=== PATIENT | female | born 1940 | race Caucasian/White ===

== ENCOUNTER → 2016-10-14 | Outpatient (CLI) | payer MEDICARE, OTHER | END | disposition home or self-care (01) | LOC: YCHH 11:35 | PROVIDERS: ATTEND Family Medicine | DX: E11.9 Type 2 diabetes mellitus without complications (principal); I48.91 Unspecified atrial fibrillation ==

== ENCOUNTER → 2016-10-28 | Outpatient (CLI) | payer MEDICARE, OTHER | LOC: YCHH 09:19 | PROVIDERS: ATTEND Family Medicine | DX: I48.91 Unspecified atrial fibrillation (principal) ==

== ENCOUNTER → 2016-11-25 | Outpatient (CLI) | payer MEDICARE, OTHER | END | disposition home or self-care (01) | LOC: YCHH 10:53 | PROVIDERS: ATTEND Family Medicine | DX: I48.0 Paroxysmal atrial fibrillation (principal) ==

== ENCOUNTER → 2016-12-24 | Outpatient (CLI) | payer MEDICARE, OTHER | END | disposition home or self-care (01) | LOC: YCHH 09:22 | PROVIDERS: ATTEND Family Medicine | DX: I48.91 Unspecified atrial fibrillation (principal) ==

== ENCOUNTER → 2017-01-24 | Outpatient (CLI) | payer MEDICARE, OTHER | END | disposition home or self-care (01) | LOC: YCHH 09:08 | PROVIDERS: ATTEND Family Medicine | DX: I50.9 Heart failure, unspecified (principal); E11.9 Type 2 diabetes mellitus without complications; D64.9 Anemia, unspecified; I48.91 Unspecified atrial fibrillation; I25.10 Atherosclerotic heart disease of native coronary artery without angina pectoris ==

== ENCOUNTER 2017-02-10 19:57 | Emergency (ER) | payer MEDICARE, OTHER ==
[2017-02-10] MEDS ORDERED: POVIDONE IODINE 10 % 15 ML UD TOP ONE (20:52)
[2017-02-10 21:17] VITALS: O2SAT 96
--- NOTE | 2017-02-10 21:23 | ED.PDOC ---
History of Present Illness - General Chief Complaint: Skin/Abrasion/Tear Stated Complaint: smashed finger with garage door Time Seen by Provider: 02/10/17 21:23 Source: patient Exam Limitations: no limitations - History of Present Illness Initial Comments: Luis Thomson 76 y/o female stated she accidentally smashed her left ring finger in the garage door tonight,had skin tear and slight swelling right ring finger Occurred: just prior to arrival Pain - Upper Extremity: moderate: Hand, right - ring finger Method of Injury: other - accidentally smashed Improving Factors: rest Worsening Factors: movement Allergies/Adverse Reactions: Allergies Iodine Allergy (Verified 02/10/17 21:06) Penicillin G Allergy (Verified 02/10/17 21:06) Shellfish Allergy Allergy (Verified 02/10/17 21:06) cabbage family Allergy (Uncoded 08/17/16 22:09) Home Medications: Ambulatory Orders Tramadol HCl 50 mg PO Q4-6H PRN 07/11/14 Furosemide Tab [Lasix Tab] 1 tab PO DAILY #30 07/17/14 Acetaminophen [Tylenol] 650 mg PO Q4H PRN 08/16/16 Aspirin [Aspirin Childrens] 81 mg PO DAILY 08/16/16 Azithromycin [Zithromax Z-Fidencio] 1 ea PO DAILY 08/16/16 Carvedilol [Coreg] 6.25 mg PO BID 08/16/16 Cetirizine HCl [Zyrtec] 10 mg PO DAILY 08/16/16 Digoxin 0.25 mg PO DAILY 08/16/16 Ferrous Sulfate 325 mg PO DAILY 08/16/16 Insulin Detemir [Levemir Flexpen] 10 units SUBCU DAILY 08/16/16 Insulin Lispro (Human) [Humalog Kwikpen] 100 unit SC DAILY PRN 08/16/16 Nepafenac [Ilevro] 0.3 % OP DAILY 08/16/16 Polyethylene Glycol 3350 [Miralax] 17 gm PO DAILY 08/16/16 Potassium Chloride [Potassium Chloride ER] 10 meq PO BIDFD 08/16/16 Simvastatin 20 mg PO BEDTIME 08/16/16 Trazodone HCl 50 mg PO BEDTIME 08/16/16 Warfarin Sodium [Coumadin] 2.5 mg PO SUMOWEFRSA 08/16/16 Warfarin Sodium [Coumadin] 5 mg PO TUTH 08/16/16 levoFLOXacin [Levaquin] 500 mg PO QDAC #8 tab 08/18/16 Review of Systems - Review of Systems Constitutional: States: no symptoms reported EENTM: States: no symptoms reported Respiratory: States: no symptoms reported Cardiology: States: no symptoms reported Gastrointestinal/Abdominal: States: no symptoms reported Genitourinary: States: no symptoms reported Musculoskeletal: States: see HPI Skin: States: see HPI Neurological: States: no symptoms reported Endocrine: States: no symptoms reported Past Medical History (General) - Patient Medical History Hx Seizures: Yes - post head injury as teenager Hx Stroke: No Hx Asthma: Yes Hx of COPD: No Hx Cardiac Disorders: Yes - A-Fib, CHF Hx Congestive Heart Failure: Yes Hx Pacemaker: No Hx Hypertension: Yes Hx Diabetes: Yes Hx MRSA: No Surgical History: other - hysterectomy - Vaccination History Hx Tetanus, Diphtheria Vaccination: Yes - 4 yrs ago Hx Influenza Vaccination: Yes Hx Pneumococcal Vaccination: Yes - Social History Hx Tobacco Use: No Hx Alcohol Use: No Hx Substance Use: No Hx Physical Abuse: No Hx Emotional Abuse: No - Activities of Daily Living Patient Lives Alone: No - family Family Medical History - Family History Mother Family History: Unknown Living Status: Hx Family Diabetes: Yes Physical Exam - Physical Exam General Appearance: Alert, No apparent distress Eyes, Ears, Nose, Throat Exam: PERRL/EOMI, normal ENT inspection Neck: non-tender, full range of motion, supple, normal inspection Cardiovascular/Respiratory: regular rate, rhythm, normal peripheral pulses, normal breath sounds Abdominal Exam: non-tender, no organomegaly Shoulder Exam: normal inspection, non-tender Elbow/Forearm Exam: normal inspection, no evidence of injury Wrist Exam: normal inspection, no evidence of injury Hand Exam: bone tenderness, deformity - skin tear volar aspect 4th digit right, limited ROM - pain ring finger Neuro/Tendon: normal sensation, normal motor functions, normal tendon functions , responds to pain Mental Status: alert, oriented x 3 Skin Exam: normal color, warm/dry Progress - EKG/XRAY/CT XRAY: ring finger right-no fracture Departure - Departure Clinical Impression: Skin tear of right hand without complication Qualifiers: Encounter type: initial encounter Qualified Code(s): S61.401A - Unspecified open wound of right hand, initial encounter Time of Disposition: 22:53 Disposition: Discharge to Home or Self Care Condition: Fair Departure Forms: ED Discharge - Pt. Copy, Patient Portal Self Enrollment Referrals: Binh Maradiaga MD [Primary Care Provider] - 1-2 Weeks Home Medications: Ambulatory Orders Tramadol HCl 50 mg PO Q4-6H PRN 07/11/14 Furosemide Tab [Lasix Tab] 1 tab PO DAILY #30 07/17/14 Acetaminophen [Tylenol] 650 mg PO Q4H PRN 08/16/16 Aspirin [Aspirin Childrens] 81 mg PO DAILY 08/16/16 Azithromycin [Zithromax Z-Fidencio] 1 ea PO DAILY 08/16/16 Carvedilol [Coreg] 6.25 mg PO BID 08/16/16 Cetirizine HCl [Zyrtec] 10 mg PO DAILY 08/16/16 Digoxin 0.25 mg PO DAILY 08/16/16 Ferrous Sulfate 325 mg PO DAILY 08/16/16 Insulin Detemir [Levemir Flexpen] 10 units SUBCU DAILY 08/16/16 Insulin Lispro (Human) [Humalog Kwikpen] 100 unit SC DAILY PRN 08/16/16 Nepafenac [Ilevro] 0.3 % OP DAILY 08/16/16 Polyethylene Glycol 3350 [Miralax] 17 gm PO DAILY 08/16/16 Potassium Chloride [Potassium Chloride ER] 10 meq PO BIDFD 08/16/16 Simvastatin 20 mg PO BEDTIME 08/16/16 Trazodone HCl 50 mg PO BEDTIME 08/16/16 Warfarin Sodium [Coumadin] 2.5 mg PO SUMOWEFRSA 08/16/16 Warfarin Sodium [Coumadin] 5 mg PO TUTH 08/16/16 levoFLOXacin [Levaquin] 500 mg PO QDAC #8 tab 08/18/16 Additional Instructions: Recheck with home health nurse for wound care
[2017-02-10] MEDS ORDERED: NEOMYCIN-BACITRACIN-POLYMYXIN 0.9 GM UD TOP ONE (22:01)
--- NOTE | 2017-02-10 22:16 | RAD ---
EXAM DESCRIPTION: Fingers,Right CLINICAL HISTORY: 76 years Female injury COMPARISON: None. TECHNIQUE: Right finger three view FINDINGS: No acute fractures or dislocations are identified. No osseous destructive lesions. There is narrowing of the interphalangeal joint spaces. This is most notable in the distal interphalangeal joint of the third digit. There is mild ulnar subluxation at the third DIP joint. IMPRESSION: No acute fracture is identified. 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
[2017-02-10] MEDS ORDERED: HYDROCOD/APAP 5/325 (ER DISP) #3 TAB PO ONE (22:53)
[2017-02-10 23:17] VITALS: BP 164/63; TEMP 98.1
== END 2017-02-10 23:10 | disposition home or self-care (01) ==
LOC: ER 19:57
DX: S61.215A Laceration without foreign body of left ring finger without damage to nail, initial encounter (principal); I48.91 Unspecified atrial fibrillation; I11.0 Hypertensive heart disease with heart failure; I50.9 Heart failure, unspecified; Z88.8 Allergy status to other drugs, medicaments and biological substances; Z88.0 Allergy status to penicillin; Z91.018 Allergy to other foods; Z91.013 Allergy to seafood; Z79.82 Long term (current) use of aspirin; Z79.4 Long term (current) use of insulin; Z79.01 Long term (current) use of anticoagulants; W23.0XXA Caught, crushed, jammed, or pinched between moving objects, initial encounter; Y92.008 Other place in unspecified non-institutional (private) residence as the place of occurrence of the external cause

== ENCOUNTER → 2017-04-11 | Outpatient (CLI) | payer MEDICARE, OTHER | END | disposition home or self-care (01) | LOC: YCHH 10:19 | PROVIDERS: ATTEND Family Medicine | DX: I25.10 Atherosclerotic heart disease of native coronary artery without angina pectoris (principal); E11.9 Type 2 diabetes mellitus without complications; D64.9 Anemia, unspecified; I48.91 Unspecified atrial fibrillation; Z79.01 Long term (current) use of anticoagulants ==

== ENCOUNTER → 2017-07-04 | Outpatient (CLI) | payer MEDICARE, OTHER | END | disposition home or self-care (01) | LOC: YCHH 10:26 | PROVIDERS: ATTEND Family Medicine | DX: I48.91 Unspecified atrial fibrillation (principal); E11.9 Type 2 diabetes mellitus without complications; D64.9 Anemia, unspecified; E78.5 Hyperlipidemia, unspecified ==

== ENCOUNTER → 2017-10-10 | Outpatient (CLI) | payer MEDICARE, OTHER | LOC: YCHH 10:01 | PROVIDERS: ATTEND Family Medicine | DX: E11.9 Type 2 diabetes mellitus without complications (principal); D64.9 Anemia, unspecified; I25.10 Atherosclerotic heart disease of native coronary artery without angina pectoris; Z51.81 Encounter for therapeutic drug level monitoring ==

== ENCOUNTER → 2018-01-02 | Outpatient (CLI) | payer MEDICARE, OTHER | LOC: YCHH 09:18 | PROVIDERS: ATTEND Family Medicine | DX: E11.9 Type 2 diabetes mellitus without complications (principal); I50.9 Heart failure, unspecified; D64.9 Anemia, unspecified; I25.10 Atherosclerotic heart disease of native coronary artery without angina pectoris ==

== ENCOUNTER → 2018-04-24 | Outpatient (CLI) | payer MEDICARE, OTHER | LOC: YCHH 09:31 | PROVIDERS: ATTEND Family Medicine | DX: N39.0 Urinary tract infection, site not specified (principal); E11.9 Type 2 diabetes mellitus without complications; I25.10 Atherosclerotic heart disease of native coronary artery without angina pectoris; D64.9 Anemia, unspecified; E78.2 Mixed hyperlipidemia; I10 Essential (primary) hypertension ==

== ENCOUNTER → 2018-04-26 | Outpatient (CLI) | payer MEDICARE, OTHER | LOC: GMAE 16:47 | PROVIDERS: ATTEND Family Medicine | DX: G47.62 Sleep related leg cramps (principal); R25.2 Cramp and spasm; R26.9 Unspecified abnormalities of gait and mobility; N18.3 Chronic kidney disease, stage 3 (moderate) ==

== ENCOUNTER 2018-05-20 18:08 | Emergency (ER) | payer MEDICARE, OTHER ==
[2018-05-20 18:23] VITALS: O2SAT 95
--- NOTE | 2018-05-20 19:42 | ED.PDOC ---
History of Present Illness - General Chief Complaint: GI Problem Stated Complaint: diarrhea Time Seen by Provider: 05/20/18 18:18 Information Source: patient, family Exam Limitations: other - chronic memory impairment - History of Present Illness Initial Comments: Her son brought her here as she has been having diarrhea for 2-3 weeks that is responding poorly to Imodium. She was c/o rectal area pain earlier today & wanted to go to the doctor. She has seen her PCP for the same recently. Details about the diarrhea cannot be obtained as regards count, volume, color & bleeding as no one has actually seen her output. Home aides have seen soiled underwear in the house. On arrival here she verbalized no complaints & her son answered most of the questions. Abdominal Pain Onset Location: other - rectal Pain Radiation: no radiation Quality: mild Timing/Duration: other - unknown Worsening Factors: other - unknown Associated Symptoms: denies symptoms Review of Systems - Review of Systems Constitutional: States: no symptoms reported EENTM: States: no symptoms reported Respiratory: States: no symptoms reported Cardiology: States: no symptoms reported Gastrointestinal/Abdominal: States: see HPI Genitourinary: States: no symptoms reported Musculoskeletal: States: no symptoms reported Neurological: States: see HPI, weakness Endocrine: States: no symptoms reported Past Medical History (General) - Patient Medical History Hx Seizures: Yes - post head injury as teenager Hx Stroke: No Hx Dementia: Yes Hx Asthma: Yes Hx of COPD: No Hx Cardiac Disorders: Yes - A-Fib, CHF Hx Congestive Heart Failure: Yes Hx Pacemaker: No Hx Hypertension: Yes Hx Diabetes: Yes Hx MRSA: No - Vaccination History Hx Tetanus, Diphtheria Vaccination: Yes - 4 yrs ago Hx Influenza Vaccination: No Hx Pneumococcal Vaccination: Yes - Social History Hx Tobacco Use: No Hx Alcohol Use: No Hx Substance Use: No Hx Physical Abuse: No Hx Emotional Abuse: No Family Medical History - Family History Mother Family History: Unknown Living Status: Hx Family Diabetes: Yes Physical Exam - Physical Exam General Appearance: Alert, Comfortable, Frail, No apparent distress Eyes, Ears, Nose, Throat Exam: other - anicteric; pink conjunctiva Neck: supple, normal inspection Respiratory: no respiratory distress Cardiovascular/Chest: regular rate, rhythm Peripheral Pulses: 1+ Gastrointestinal/Abdominal: soft, no organomegaly, other - mild diffuse discomfort to palpation Extremity: normal inspection Neurologic: alert, normal mood/affect, disoriented x 3 Skin Exam: normal color, warm/dry Special Observations: No evidence of discomfort Progress - Progress Progress: 05/20/18 19:42 Feels OK. Lab unremarkable. No diarrhea yet. 05/20/18 20:55 + BM. Impacted per the nurse. Proobably has been having overflow incontinence rather than diarrhea. - Results/Orders Results/Orders: WBC 13 BUN 19 Na 133 Departure - Departure Clinical Impression: Constipation Qualifiers: Constipation type: unspecified constipation type Qualified Code(s): K59.00 - Constipation, unspecified Time of Disposition: 20:57 Disposition: Discharge to Home or Self Care Condition: Good Departure Forms: ED Discharge - Pt. Copy, Patient Portal Self Enrollment Instructions: DI for Constipation Referrals: CLAUDE GRIMES MD [Primary Care Provider] - 05/23/18 Home Medications: Ambulatory Orders Tramadol HCl 50 mg PO Q4-6H PRN 07/11/14 Furosemide Tab [Lasix Tab] 1 tab PO DAILY #30 07/17/14 Acetaminophen [Tylenol] 650 mg PO Q4H PRN 08/16/16 Aspirin [Aspirin Childrens] 81 mg PO DAILY 08/16/16 Azithromycin [Zithromax Z-Fidencio] 1 ea PO DAILY 08/16/16 Carvedilol [Coreg] 6.25 mg PO BID 08/16/16 Cetirizine HCl [Zyrtec] 10 mg PO DAILY 08/16/16 Digoxin 0.25 mg PO DAILY 08/16/16 Ferrous Sulfate 325 mg PO DAILY 08/16/16 Insulin Detemir [Levemir Flexpen] 10 units SUBCU DAILY 08/16/16 Insulin Lispro [Humalog Kwikpen] 100 unit SC DAILY PRN 08/16/16 Nepafenac [Ilevro] 0.3 % OP DAILY 08/16/16 Polyethylene Glycol 3350 [Miralax] 17 gm PO DAILY 08/16/16 Potassium Chloride [Potassium Chloride ER] 10 meq PO BIDFD 08/16/16 Simvastatin 20 mg PO BEDTIME 08/16/16 Trazodone HCl 50 mg PO BEDTIME 08/16/16 Warfarin Sodium [Coumadin] 2.5 mg PO SUMOWEFRSA 08/16/16 Warfarin Sodium [Coumadin] 5 mg PO TUTH 08/16/16 levoFLOXacin [Levaquin] 500 mg PO QDAC #8 tab 08/18/16
[2018-05-20 21:24] VITALS: BP 111/65; TEMP 97.8
== END 2018-05-20 21:20 | disposition home or self-care (01) ==
LOC: ER 18:08
DX: K59.00 Constipation, unspecified (principal); I50.9 Heart failure, unspecified; F03.90 Unspecified dementia, unspecified severity, without behavioral disturbance, psychotic disturbance, mood disturbance, and anxiety; J45.909 Unspecified asthma, uncomplicated; I48.91 Unspecified atrial fibrillation; I11.0 Hypertensive heart disease with heart failure; Z79.01 Long term (current) use of anticoagulants; Z79.82 Long term (current) use of aspirin; Z79.899 Other long term (current) drug therapy

== ENCOUNTER → 2018-07-10 | Outpatient (CLI) | payer MEDICARE, OTHER | LOC: YCHH 09:20 | PROVIDERS: ATTEND Family Medicine | DX: E11.9 Type 2 diabetes mellitus without complications (principal); I25.10 Atherosclerotic heart disease of native coronary artery without angina pectoris; E78.2 Mixed hyperlipidemia; D64.9 Anemia, unspecified; I48.2 Chronic atrial fibrillation; I49.9 Cardiac arrhythmia, unspecified ==

== ENCOUNTER → 2018-09-19 | Outpatient (CLI) | payer MEDICARE, OTHER | LOC: YCHH 09:31 | PROVIDERS: ATTEND Family Medicine | DX: E11.9 Type 2 diabetes mellitus without complications (principal); I25.10 Atherosclerotic heart disease of native coronary artery without angina pectoris; D64.9 Anemia, unspecified; N39.0 Urinary tract infection, site not specified; E03.9 Hypothyroidism, unspecified; Z79.899 Other long term (current) drug therapy ==

== ENCOUNTER → 2019-03-15 | Outpatient (CLI) | payer MEDICARE, OTHER | LOC: GMAE 16:53 | PROVIDERS: ATTEND Family Medicine | DX: G30.9 Alzheimer's disease, unspecified (principal); R41.82 Altered mental status, unspecified; I48.91 Unspecified atrial fibrillation ==

== ENCOUNTER → 2019-03-16 | Outpatient (CLI) | payer MEDICARE, OTHER ==
--- NOTE | 2019-03-16 12:42 | CT ---
EXAM DESCRIPTION: Head CLINICAL HISTORY: DEMENTIA COMPARISON: None available TECHNIQUE: Noncontrast head CT was performed with routine protocol. FINDINGS: Normal keita-white matter differentiation. Ventricles and sulci are prominent consistent with age-related cerebral volume loss. Low density areas in the cerebral white matter indicate chronic microvascular ischemic disease. No high density hemorrhage, focal edema or shift of the midline. No sulcal effacement. Normal orbital contents. Basilar cisterns appear clear. Intact calvarium with no fracture or lytic lesion. Normal aeration of tympanic cavities and mastoid air cells. No fluid levels in the paranasal sinuses. Skull base appears intact. Symmetrical internal auditory canals. IMPRESSION: No acute intracranial pathologic process. This exam was performed according to our departmental dose-optimization program, which includes automated exposure control, adjustment of the mA and/or kV according to patient size and/or use of iterative reconstruction technique. Total DLP equals 859.97 mGycm. Electronically signed by: Gomez Onofre MD 03/16/2019 12:40 PM CDT
== END ==
LOC: CT 11:37
PROVIDERS: ATTEND Family Medicine
DX: F03.90 Unspecified dementia, unspecified severity, without behavioral disturbance, psychotic disturbance, mood disturbance, and anxiety (principal); E11.9 Type 2 diabetes mellitus without complications; E44.1 Mild protein-calorie malnutrition; E13.8 Other specified diabetes mellitus with unspecified complications; R41.841 Cognitive communication deficit; R29.6 Repeated falls

== ENCOUNTER 2019-04-09 11:55 | Emergency (ER) | payer MEDICARE, OTHER ==
--- NOTE | 2019-04-09 12:15 | ED.PDOC ---
History of Present Illness - General Chief Complaint: General Stated Complaint: Pneumonia not responsive to tx Time Seen by Provider: 04/09/19 12:08 Source: RN/MD Exam Limitations: clinical condition - dementia/agitation - History of Present Illness Initial Comments: Bj Thomson 78 y/o female brought from [facility] after CXR repeat done today showing non resolving PNA.She was hospitalized here on 20 Jan 2019 for PNA.Patient agitated and has dementia.Patient poor historian.Denies cough ,afebrile ,SOB but feels cold. Timing/Duration: 24 hours Severity: moderate Improving Factors: nothing Worsening Factors: nothing Associated Symptoms: other - see hpi Allergies/Adverse Reactions: Allergies Iodine Allergy (Verified 02/10/17 21:06) Penicillin G Allergy (Verified 02/10/17 21:06) Shellfish Allergy Allergy (Verified 02/10/17 21:06) cabbage family Allergy (Uncoded 08/17/16 22:09) Home Medications: Ambulatory Orders Tramadol HCl 50 mg PO Q6H PRN 07/11/14 Furosemide Tab [Lasix Tab] 1 tab PO DAILY #30 07/17/14 Acetaminophen [Tylenol] 650 mg PO Q4H PRN 08/16/16 Aspirin [Aspirin Childrens] 81 mg PO DAILY 08/16/16 Carvedilol [Coreg] 6.25 mg PO BID 08/16/16 Cetirizine HCl [Zyrtec] 10 mg PO DAILY 08/16/16 Insulin Lispro [Humalog Kwikpen] See Protocol SC AC PRN 08/16/16 Potassium Chloride [Potassium Chloride ER] 10 meq PO DAILY 08/16/16 Simvastatin 20 mg PO BEDTIME 08/16/16 Trazodone HCl 50 mg PO BEDTIME 08/16/16 Atorvastatin Calcium [Lipitor] 10 mg PO BEDTIME 01/20/19 Diltiazem HCl [Diltiazem HCl ER] 120 mg PO DAILY 01/20/19 Docusate Sodium [Colace] 100 mg PO Q12H PRN 01/20/19 Nepafenac [Nevanac] 1 drop BOTH_EYES DAILY 01/20/19 Warfarin Sodium [Coumadin] 2 mg PO BEDTIME 01/20/19 Cefdinir 300 mg PO BID #14 capsule 01/23/19 Guaifenesin [Guaifenesin ER] 600 mg PO BID #28 tab 01/23/19 Insulin Detemir [Levemir] 5 unit SUBCU BEDTIME #1 pen 01/23/19 Review of Systems - Review of Systems Respiratory: States: other - PNA-non resolving/repeat CXR Unable to Obtain Due To: dementia All other Systems: Reviewed and Negative, No Change from Baseline Past Medical History (General) - Patient Medical History Hx Seizures: Yes - post head injury as teenager Hx Stroke: No Hx Dementia: Yes Hx Asthma: Yes Hx of COPD: No Hx Cardiac Disorders: Yes - A-Fib, CHF Hx Congestive Heart Failure: Yes Hx Pacemaker: No Hx Hypertension: Yes Hx Diabetes: Yes Hx MRSA: No Surgical History: other - hysterectomy - Vaccination History Hx Tetanus, Diphtheria Vaccination: Yes - 4 yrs ago Hx Influenza Vaccination: No Hx Pneumococcal Vaccination: Yes - Social History Hx Tobacco Use: No Hx Alcohol Use: No Hx Substance Use: No Hx Physical Abuse: No Hx Emotional Abuse: No - Activities of Daily Living Patient Lives Alone: No Jail/Assisted Living (if applicable):: [place] G[place] Ability: Standby Assistance Eating (Feeding) Ability: Standby Assistance Toileting Ability: Standby Assistance Family Medical History - Family History Mother Family History: Unknown Living Status: Hx Family Diabetes: Yes Physical Exam - Physical Exam General Appearance: Alert, Comfortable, No apparent distress Eye Exam: bilateral normal Ears, Nose, Throat: hearing grossly normal, normal ENT inspection Neck: supple, normal inspection Respiratory: no respiratory distress, decreased breath sounds, rales - mild bases Cardiovascular/Chest: normal peripheral pulses, regular rate, rhythm, no gallop, no murmur Peripheral Pulses: radial,right: 2+, radial,left: 2+ Gastrointestinal/Abdominal: non tender, soft, no organomegaly Back Exam: no CVA tenderness, no vertebral tenderness Extremity: no calf tenderness, pedal edema - 3 + bilaterally Neurologic: alert, oriented x 3 Skin Exam: normal color, warm/dry Progress - Progress Progress: 04/09/19 16:44 Vital Signs - 8 hr 04/09/19 04/09/19 12:00 14:00 Temperature 96.2 F L 97 F L Pulse Rate [L 103 H 71 finger] Respiratory 20 20 Rate Blood Pressure 131/83 109/68 [L arm] O2 Sat by Pulse 97 100 Oximetry - Results/Orders Results/Orders: Vital Signs - 8 hr 04/09/19 04/09/19 12:00 14:00 Temperature 96.2 F L 97 F L Pulse Rate [L 103 H 71 finger] Respiratory 20 20 Rate Blood Pressure 131/83 109/68 [L arm] O2 Sat by Pulse 97 100 Oximetry 04/09/19 12:15 URINALYSIS Stat 04/09/19 13:15 Be Our [facility] ([place]) ONCE Laboratory Results - last 24 hr 04/09/19 04/09/19 04/09/19 13:31 13:31 13:31 WBC 4.6 L RBC 3.38 L Hgb 10.0 L Hct 30.9 L MCV 91.4 MCH 29.7 MCHC 32.4 L RDW 15.0 H Plt Count 231 MPV 8.7 Absolute Neuts (auto) 3.40 Absolute Lymphs (auto) 0.70 L Absolute Monos (auto) 0.50 Absolute Eos (auto) 0.10 Absolute Basos (auto) 0.00 Neutrophils % 73.2 Lymphocytes % 14.6 L Monocytes % 9.9 H Eosinophils % 1.4 Basophils % 0.9 PT 13.0 H INR 1.30 H PTT (SP) 27.8 Sodium 142 Potassium 4.1 Chloride 101 Carbon Dioxide 31 Anion Gap 14.1 BUN 26 H Creatinine 0.96 BUN/Creatinine Ratio 27.1 H Random Glucose 122 H Serum Osmolality 289.2 Lactic Acid 1.0 Calcium 9.0 Magnesium 2.0 Total Bilirubin 0.9 Direct Bilirubin 0.2 Indirect Bilirubin 0.7 AST 18 ALT 13 Alkaline Phosphatase 82 Creatine Kinase 28 CK-MB (CK-2) 4.3 CK-MB (CK-2) % Not Reportable Troponin I 0.02 B-Natriuretic Peptide 388.0 H* Serum Total Protein 5.9 L Albumin 3.4 TSH 04/09/19 13:31 WBC RBC Hgb Hct MCV MCH MCHC RDW Plt Count MPV Absolute Neuts (auto) Absolute Lymphs (auto) Absolute Monos (auto) Absolute Eos (auto) Absolute Basos (auto) Neutrophils % Lymphocytes % Monocytes % Eosinophils % Basophils % PT INR PTT (SP) Sodium Potassium Chloride Carbon Dioxide Anion Gap BUN Creatinine BUN/Creatinine Ratio Random Glucose Serum Osmolality Lactic Acid Calcium Magnesium Total Bilirubin Direct Bilirubin Indirect Bilirubin AST ALT Alkaline Phosphatase Creatine Kinase CK-MB (CK-2) CK-MB (CK-2) % Troponin I B-Natriuretic Peptide Serum Total Protein Albumin TSH 2.87 - EKG/XRAY/CT XRAY: chest - mildly improved PNA right lung base CT Ordered: Yes - chest-scarring ;NO PNEUMONIA;4 cm ascending thoracic aneurysm Departure - Departure Clinical Impression: Abnormal chest x-ray Thoracic aneurysm without mention of rupture Qualifiers: Presence of rupture: without rupture Qualified Code(s): I71.2 - Thoracic aortic aneurysm, without rupture Time of Disposition: 16:48 Disposition: Discharge to SNF Condition: Fair Departure Forms: ED Discharge - Pt. Copy, Patient Portal Self Enrollment Referrals: CLAUDE GRIMES MD [Primary Care Provider] - 1-2 Weeks Home Medications: Ambulatory Orders Tramadol HCl 50 mg PO Q6H PRN 07/11/14 Furosemide Tab [Lasix Tab] 1 tab PO DAILY #30 07/17/14 Acetaminophen [Tylenol] 650 mg PO Q4H PRN 08/16/16 Aspirin [Aspirin Childrens] 81 mg PO DAILY 08/16/16 Carvedilol [Coreg] 6.25 mg PO BID 08/16/16 Cetirizine HCl [Zyrtec] 10 mg PO DAILY 08/16/16 Insulin Lispro [Humalog Kwikpen] See Protocol SC AC PRN 08/16/16 Potassium Chloride [Potassium Chloride ER] 10 meq PO DAILY 08/16/16 Simvastatin 20 mg PO BEDTIME 08/16/16 Trazodone HCl 50 mg PO BEDTIME 08/16/16 Atorvastatin Calcium [Lipitor] 10 mg PO BEDTIME 01/20/19 Diltiazem HCl [Diltiazem HCl ER] 120 mg PO DAILY 01/20/19 Docusate Sodium [Colace] 100 mg PO Q12H PRN 01/20/19 Nepafenac [Nevanac] 1 drop BOTH_EYES DAILY 01/20/19 Warfarin Sodium [Coumadin] 2 mg PO BEDTIME 01/20/19 Cefdinir 300 mg PO BID #14 capsule 01/23/19 Guaifenesin [Guaifenesin ER] 600 mg PO BID #28 tab 01/23/19 Insulin Detemir [Levemir] 5 unit SUBCU BEDTIME #1 pen 01/23/19 Additional Instructions: Continue with aqll home medications;Follow up with primary Md 10 April 2019 for recheck schedule appointment;return to Emergency Room as needed
[2019-04-09] MEDS ORDERED: BUMETANIDE 0.25 MG/ML VIAL IV ONE (12:29)
--- NOTE | 2019-04-09 14:42 | RAD ---
EXAM DESCRIPTION: Chest,1 View CLINICAL HISTORY: 78 years Female, sob COMPARISON: Previous study January 21, 2019 TECHNIQUE: AP portable chest. FINDINGS: Heart size is large with normal pulmonary vascularity. Aortic arch is calcified. Infiltrative changes are seen in the right lower lobe slightly improved compared to previous study. No pulmonary mass or worrisome nodule. No pneumothorax. Blunting of the costophrenic angles bilaterally is consistent with small pleural effusions.. Bones are unremarkable. IMPRESSION: Right lower lobe infiltrate. Blunting of the costophrenic angles consistent with small pleural effusions. Electronically signed by: Gomez Onofre MD 04/09/2019 2:40 PM CDT
--- NOTE | 2019-04-09 15:35 | CT ---
EXAM DESCRIPTION: Chest w/o Contrast CLINICAL HISTORY: right lower lobe infiltrate x 3 months no resolvin COMPARISON: Chest radiograph earlier same day, older chest radiograph performed August 17, 2016. TECHNIQUE: Chest CT was performed without IV contrast. This exam was performed according to our departmental dose-optimization program, which includes automated exposure control, adjustment of the mA and/or kV according to patient size and/or use of iterative reconstruction technique. FINDINGS: No thyroid nodule. Fusiform dilation of the ascending thoracic aorta measuring up to 4 cm diameter. Mural calcification elsewhere in the thoracic aorta and coronary arteries. The main pulmonary artery is not dilated. Limited sensitivity for detection of adenopathy due to lack of IV contrast, but no mediastinal or hilar adenopathy is seen. Calcified paratracheal lymph node. Tiny bilateral pleural effusions. There are a few tiny calcified granulomata in the right lung with pleural-based calcification posteriorly in the right hemithorax. Subsegmental atelectasis or scarring posteriorly in the right lung base without additional airspace consolidation. No lung mass. No breast or chest wall lesion. No axillary adenopathy. Visualized portions of the upper abdomen are unremarkable for noncontrast technique. Degenerative changes in the thoracic spine at several levels. Old L1 compression fracture, not significantly changed from July 2016. Motion artifact limiting evaluation of the sternum, but no rib fracture or pneumothorax. IMPRESSION: Smooth pleural thickening and pleural-based calcification posteriorly in the right lung base with a small right-sided pleural effusion and overlying subsegmental atelectasis or scarring. No pneumonia or other acute intrathoracic abnormality. Tiny left-sided effusion without left-sided airspace consolidation the left pleural thickening/calcification. 4.0 cm fusiform ascending thoracic aortic aneurysm. Coronary artery disease and evidence of old healed granulomatous disease. Old L1 compression fracture. Electronically signed by: Brian Garcia MD 04/09/2019 3:33 PM CDT
[2019-04-09 15:55] VITALS: BP 109/68; TEMP 97
[2019-04-09 18:34] VITALS: O2SAT 92
== END 2019-04-09 17:18 ==
LOC: ER 11:55
DX: I71.2 Thoracic aortic aneurysm, without rupture (principal); R91.8 Other nonspecific abnormal finding of lung field; F03.90 Unspecified dementia, unspecified severity, without behavioral disturbance, psychotic disturbance, mood disturbance, and anxiety; J45.909 Unspecified asthma, uncomplicated; I50.9 Heart failure, unspecified; I48.91 Unspecified atrial fibrillation; I11.0 Hypertensive heart disease with heart failure; E11.9 Type 2 diabetes mellitus without complications; Z79.4 Long term (current) use of insulin; Z79.899 Other long term (current) drug therapy; Z79.82 Long term (current) use of aspirin; Z91.041 Radiographic dye allergy status; Z91.013 Allergy to seafood; Z88.0 Allergy status to penicillin
CPT/HCPCS: 36415; 71045; 71250; 80048; 80076; 82550; 82553; 83605; 83880; 84443; 84484; 85025; 85610; 85730; J3490

== ENCOUNTER 2019-04-28 07:33 | Emergency (ER) | payer MEDICARE, OTHER ==
[2019-04-28 14:22] VITALS: BP 111/79; TEMP 97.1; O2SAT 100
== END 2019-04-28 13:37 ==
LOC: ER 07:33
DX: E11.649 Type 2 diabetes mellitus with hypoglycemia without coma (principal); R40.0 Somnolence; F32.9 Major depressive disorder, single episode, unspecified; F03.90 Unspecified dementia, unspecified severity, without behavioral disturbance, psychotic disturbance, mood disturbance, and anxiety; J45.909 Unspecified asthma, uncomplicated; I48.91 Unspecified atrial fibrillation; I50.9 Heart failure, unspecified; I11.0 Hypertensive heart disease with heart failure; Z79.4 Long term (current) use of insulin; Z79.82 Long term (current) use of aspirin; Z79.899 Other long term (current) drug therapy; Z79.01 Long term (current) use of anticoagulants; Z91.041 Radiographic dye allergy status; Z88.0 Allergy status to penicillin; Z91.013 Allergy to seafood
CPT/HCPCS: 36415; 36416; 70450; 71045; 80048; 80076; 82550; 82553; 82948; 83605; 83880; 84484; 85025; 85610; 85730; J7799

== ENCOUNTER 2019-05-21 15:31 | Inpatient (IN) | payer MEDICARE, OTHER ==
--- NOTE | 2019-05-21 16:15 | ED.PDOC ---
History of Present Illness - General Chief Complaint: General Time Seen by Provider: 05/21/19 16:06 - History of Present Illness Initial Comments: Patient is a 78 year old w/ pmh of dementia, chf, a fib presenting from residential for evaluation of worsening edema. Patient is unable to provide any information and has no complaints. Per report the swelling has been on going for the past couple of days. HPI limited due to patient's dementia. Allergies/Adverse Reactions: Allergies Iodine Allergy (Verified 05/21/19 17:21) Penicillin G Allergy (Verified 05/21/19 17:21) Shellfish Allergy Allergy (Verified 05/21/19 17:21) cabbage family Allergy (Uncoded 05/21/19 17:21) Home Medications: Ambulatory Orders Tramadol HCl 50 mg PO Q6H PRN 07/11/14 Furosemide Tab [Lasix Tab] 1 tab PO DAILY #30 07/17/14 Acetaminophen [Tylenol] 650 mg PO Q4H PRN 08/16/16 Aspirin [Aspirin Childrens] 81 mg PO DAILY 08/16/16 Carvedilol [Coreg] 6.25 mg PO BID 08/16/16 Cetirizine HCl [Zyrtec] 10 mg PO DAILY 08/16/16 Insulin Lispro [Humalog Kwikpen] See Protocol SC AC PRN 08/16/16 Potassium Chloride [Potassium Chloride ER] 10 meq PO DAILY 08/16/16 Simvastatin 20 mg PO BEDTIME 08/16/16 Trazodone HCl 50 mg PO BEDTIME 08/16/16 Atorvastatin Calcium [Lipitor] 10 mg PO BEDTIME 01/20/19 Diltiazem HCl [Diltiazem HCl ER] 120 mg PO DAILY 01/20/19 Docusate Sodium [Colace] 100 mg PO Q12H PRN 01/20/19 Warfarin Sodium [Coumadin] 2 mg PO BEDTIME 01/20/19 Insulin Detemir [Levemir] 5 unit SUBCU BEDTIME #1 pen 01/23/19 Review of Systems - Review of Systems Unable to Obtain Due To: dementia Past Medical History (General) - Patient Medical History Hx Seizures: Yes - post head injury as teenager Hx Stroke: No Hx Dementia: Yes Hx Asthma: Yes Hx of COPD: No Hx Cardiac Disorders: Yes - A-Fib, CHF Hx Congestive Heart Failure: Yes Hx Pacemaker: No Hx Hypertension: Yes Hx Diabetes: Yes Hx Cancer: No Hx MRSA: No - Vaccination History Hx Tetanus, Diphtheria Vaccination: Yes - 4 yrs ago Hx Influenza Vaccination: No Hx Pneumococcal Vaccination: Yes - Social History Hx Tobacco Use: No Hx Alcohol Use: No Hx Substance Use: No Hx Substance Use Treatment: No Hx Depression: Yes Hx Physical Abuse: No Hx Emotional Abuse: No - Female History Patient : No Family Medical History - Family History Mother Family History: Unknown Living Status: Hx Family Diabetes: Yes Physical Exam - Physical Exam General Appearance: Alert, Comfortable Ears, Nose, Throat: hearing grossly normal, normal ENT inspection Neck: non-tender, full range of motion Respiratory: chest non-tender, lungs clear Cardiovascular/Chest: normal peripheral pulses, irregularly irregular Gastrointestinal/Abdominal: non tender, soft Extremity: pedal edema, other - diffuse anasarca, 2+ LE edema Neurologic: alert, other - oriented to person only Skin Exam: normal color, warm/dry Progress - Progress Progress: 05/21/19 16:16 MDM Pt w/ h/o dementia, CHF, a fib here presenting with diffuse anasarca. Plan for cardiac w/u, likely admit for diuresis. Rd Rios MD #[id number] 05/21/19 17:30 Spoke to Kalne Morrison who accepts patient for admission. - Results/Orders Results/Orders: 05/21/19 16:11 URINALYSIS Stat 05/21/19 16:15 EKG .ONCE Laboratory Results - last 24 hr 05/21/19 05/21/19 05/21/19 16:21 16:21 16:21 WBC RBC Hgb Hct MCV MCH MCHC RDW Plt Count MPV Absolute Neuts (auto) Absolute Lymphs (auto) Absolute Monos (auto) Absolute Eos (auto) Absolute Basos (auto) Neutrophils % Lymphocytes % Monocytes % Eosinophils % Basophils % PT 14.0 H INR 1.40 H Sodium 138 Potassium 5.4 H Chloride 98 L Carbon Dioxide 30 Anion Gap 15.4 BUN 46 H Creatinine 1.52 H BUN/Creatinine Ratio 30.3 H Random Glucose 208 H Serum Osmolality 293.7 Calcium 9.0 Magnesium 2.3 Total Bilirubin 0.9 AST 22 ALT 15 Alkaline Phosphatase 82 B-Natriuretic Peptide 417.0 H* Serum Total Protein 6.1 L Albumin 3.4 Globulin 2.7 Albumin/Globulin Ratio 1.3 05/21/19 16:21 WBC 5.8 RBC 3.68 L Hgb 10.6 L Hct 34.0 L MCV 92.3 MCH 28.9 MCHC 31.3 L RDW 15.8 H Plt Count 209 MPV 9.3 Absolute Neuts (auto) 4.00 Absolute Lymphs (auto) 0.90 L Absolute Monos (auto) 0.70 Absolute Eos (auto) 0.10 Absolute Basos (auto) 0.10 Neutrophils % 70.3 Lymphocytes % 14.9 L Monocytes % 12.4 H Eosinophils % 1.5 Basophils % 0.9 PT INR Sodium Potassium Chloride Carbon Dioxide Anion Gap BUN Creatinine BUN/Creatinine Ratio Random Glucose Serum Osmolality Calcium Magnesium Total Bilirubin AST ALT Alkaline Phosphatase B-Natriuretic Peptide Serum Total Protein Albumin Globulin Albumin/Globulin Ratio Departure - Departure Clinical Impression: Anasarca, MARY (acute kidney injury) Acute exacerbation of CHF (congestive heart failure) Qualifiers: Heart failure type: unspecified Qualified Code(s): I50.9 - Heart failure, unspecified Disposition: Admit Patient Condition: Fair Departure Forms: ED Discharge - Pt. Copy, Patient Portal Self Enrollment Referrals: CLAUDE GRIMES MD [Primary Care Provider] - 1-2 Weeks Home Medications: Ambulatory Orders Tramadol HCl 50 mg PO Q6H PRN 07/11/14 Furosemide Tab [Lasix Tab] 1 tab PO DAILY #30 07/17/14 Acetaminophen [Tylenol] 650 mg PO Q4H PRN 08/16/16 Aspirin [Aspirin Childrens] 81 mg PO DAILY 08/16/16 Carvedilol [Coreg] 6.25 mg PO BID 08/16/16 Cetirizine HCl [Zyrtec] 10 mg PO DAILY 08/16/16 Insulin Lispro [Humalog Kwikpen] See Protocol SC AC PRN 08/16/16 Potassium Chloride [Potassium Chloride ER] 10 meq PO DAILY 08/16/16 Simvastatin 20 mg PO BEDTIME 08/16/16 Trazodone HCl 50 mg PO BEDTIME 08/16/16 Atorvastatin Calcium [Lipitor] 10 mg PO BEDTIME 01/20/19 Diltiazem HCl [Diltiazem HCl ER] 120 mg PO DAILY 01/20/19 Docusate Sodium [Colace] 100 mg PO Q12H PRN 01/20/19 Warfarin Sodium [Coumadin] 2 mg PO BEDTIME 01/20/19 Insulin Detemir [Levemir] 5 unit SUBCU BEDTIME #1 pen 01/23/19 Decision To Admit - Decistion To Admit Decision to Admit Reason: Medical Nature - anasarca Decision to Admit Date: 05/21/19 Decision to Admit Time: 17:30
--- NOTE | 2019-05-21 16:39 | RAD ---
EXAM: XR Chest, 1 View CLINICAL HISTORY: dyspnea TECHNIQUE: Frontal view of the chest. COMPARISON: 04/28/2019. FINDINGS: Limitations: None. Lungs: Persistent but improved consolidation noted in the right base. Pleural space: Increased very small bilateral pleural effusions. No pneumothorax. Heart: Unremarkable. No cardiomegaly. Mediastinum: Unremarkable. Bones/joints: Unremarkable. IMPRESSION: 1. Persistent but improved consolidation noted in the right base. 2. Increased very small bilateral pleural effusions. Electronically signed by: Heather Mckoy MD 05/21/2019 4:38 PM CDT
[2019-05-21] MEDS ORDERED: FUROSEMIDE INJ 40 MG/4 ML VIAL IV ONE (17:24)
--- NOTE | 2019-05-21 19:02 | HP ---
SUPERVISING PHYSICIAN: Zeb Cao M.D. CHIEF COMPLAINT: Swelling. HISTORY OF PRESENT ILLNESS: This is a 78 year-old female who is a long term resident with advanced dementia. She is unable to give a good clinical history. However, she was sent by the long term due to increased swelling over the last several days. In the E. R., she was evaluated and noted to have 3+ pitting edema to the lower extremities to the hips and the upper extremities. She also has central edema as well. Workup also included labs and x-rays. Chest x-ray was consistent with small bilateral pleural effusions and showed possible right base consolidation as well. Compared with the previous one it looks improved, however. She had some labs done as well and showed white count 5.8, hemoglobin 10.6, platelet count 209. INR is 1.4. She takes Warfarin for atrial fibrillation. Chemistry showed potassium 5.4, BUN 46, creatinine 1.52. Albumin 3.4. BNP 417. Given her increased swelling, elevated BNP and evidence of congestive heart failure exacerbation, she was referred for admission. At time of examination, the patient is alert and oriented. She has some mild tachypnea but does not look to be in any significant distress. She, as stated before, has advanced dementia and unable to give a good clinical history. PAST MEDICAL HISTORY: 1. Hypertension. 2. Type 2 diabetes mellitus. 3. Hyperlipidemia, 4. Coronary artery disease. 5. Chronic atrial fibrillation on Warfarin. 6. Diastolic heart failure. PAST SURGICAL HISTORY: 1. Hysterectomy. 2. Bilateral cataract surgery. HOME MEDICATIONS: Please see medication reconciliation record as they have not been verified and placed in the computer yet. ALLERGIES: IODINE, PENICILLIN G, SHELLFISH AND CABBAGE. FAMILY HISTORY: Unable to obtain from the patient at this point. SOCIAL HISTORY: No drinking and no smoking. She is a long term resident. REVIEW OF SYSTEMS: Really and truly the patient is unable to give a good history of her review of systems due to her advanced dementia. PHYSICAL EXAMINATION: VITAL SIGNS: Blood pressure 111/76, heart rate 84, respiratory rate 20, temperature 97.5, oxygen saturation 100% on 2 liters viz nasal cannula. GENERAL: Ms. Thomson is a 78 year-old female in no active distress. CHEST: Lungs are diminished in the bases. CARDIOVASCULAR: Irregular rate and rhythm. Normal S1 and S2. ABDOMEN: Soft, obese. Positive bowel sounds. EXTREMITIES: Lower extremities with 3+ pitting edema. She has pitting edema to her abdomen as well as her upper extremities. NEUROLOGIC: The patient is chronically confused. There are no focal deficits. LABORATORY: As discussed in history of present illness. ASSESSMENT: 1. Congestive heart failure exacerbation. 2. Anasarca secondary to #1. 3. Renal insufficiency, acute on chronic likely. 4. Hyperkalemia likely secondary to renal insufficiency. 5. Type 2 diabetes mellitus. 6. Advanced dementia. PLAN: The patient will be admitted for diuretic therapy. I will actually give her some albumin prior to the administration of the Furosemide due to the significant anasarca. I will restart her home medications once they are placed in the computer, but replace the Lasix with IV Lasix. Will watch her electrolytes and recheck her labs in the morning. Place her on sliding scale insulin for her diabetes and physical therapy while she is here as well. [facility][id number] [facility]
[2019-05-21] MEDS ORDERED: SODIUM CHLORIDE 0.9% (FLUSH) 10 ML SYG IV PRN (19:21)
[2019-05-21] MEDS ORDERED: ALBUMIN 25 GM in PREMIX BOTTLE 2 BOTTLE IVPB SCH (19:30)
[2019-05-21] MEDS ORDERED: GLUCAGON INJ 1 MG VIAL SUBCU PRN (19:41)
[2019-05-21] MEDS ORDERED: DEXTROSE 50% 25 GM/50 ML SYG IV PRN (19:41)
[2019-05-21] MEDS ORDERED: ALBUMIN 100 ML IVPB ONE (21:04)
[2019-05-21] MEDS: IV SET AND CAP CHANGE INJ INJ SCH (21:11)
[2019-05-21] MEDS: INSULIN LISPRO 100 UNITS/ML PEN SUBCU SCH (21:11)
[2019-05-22] MEDS ORDERED: ALBUMIN 100 ML IVPB ONE (02:23)
[2019-05-22] MEDS: ALBUMIN 25 GM in PREMIX BOTTLE 2 BOTTLE IVPB SCH ×2 (04:59→13:12)
[2019-05-22] MEDS: FUROSEMIDE INJ 40 MG/4 ML VIAL IV SCH ×2 (05:58→13:12)
[2019-05-22] MEDS: INSULIN LISPRO 100 UNITS/ML PEN SUBCU SCH ×4 (07:22→21:04)
[2019-05-22] MEDS ORDERED: POTASSIUM CHLORIDE 10 MEQ TAB PO ONE (07:39)
[2019-05-22] MEDS ORDERED: CARVEDILOL 3.125 MG TAB ONE (07:39)
[2019-05-22] MEDS: ASPIRIN (CHEWABLE) 81 MG TAB PO SCH (08:17)
[2019-05-22] MEDS: CETIRIZINE HCL 10 MG TAB PO SCH (08:17)
[2019-05-22] MEDS ORDERED: NON-FORMULARY MEDICATION 1 EA MIS (Carvedilol [Coreg] 6.25 MG) PO SCH (09:00)
[2019-05-22] MEDS ORDERED: NON-FORMULARY MEDICATION 1 EA MIS (Potassium Chloride [Potassium Chloride Er] 10 MEQ) PO SCH (09:00)
[2019-05-22] MEDS ORDERED: DILTIAZEM HCL 120 MG PO SCH (09:00)
[2019-05-22] MEDS ORDERED: METOPROLOL TARTRATE 25 MG TAB PO ONE (09:50)
--- NOTE | 2019-05-22 09:55 | PN ---
SUPERVISING PHYSICIAN: Zeb Cao MD DATE: 05/22/19 SUBJECTIVE: The patient does not have any complaints at this time. Once again, she has advanced dementia and is not really too verbal. There were no changes overnight per the nursing staff. OBJECTIVE: VITAL SIGNS: Blood pressure 116/79. Heart rate 115. Respiratory rate 18. Temperature 98.9. Oxygen saturation 100%. GENERAL: Ms. Thomson is a 78-year-old female in no active distress. NEUROLOGIC: The patient is alert. LUNGS: Diminished in the bases, but otherwise clear to auscultation bilaterally. CARDIOVASCULAR: Irregular rate and rhythm. Normal S1, S2. ABDOMEN: Soft. Positive bowel sounds. EXTREMITIES: Lower extremities with 3+ pitting edema. LABORATORY: Sodium 139, potassium 4.7, chloride 100, CO2 26, BUN 42, creatinine 1.46, glucose 125, calcium 9.2. White count 4.5, hemoglobin 10.1, platelet count 178. ASSESSMENT: 1. Congestive heart failure exacerbation. 2. Anasarca secondary to #1. 3. Acute on chronic renal insufficiency. 4. Hyperkalemia, resolved. 5. Type 2 diabetes mellitus. 6. Advanced dementia. PLAN: We will continue the albumin and Lasix and combination for the next 24 hours or so. We will reevaluate tomorrow and see how she is doing. [facility]. #[id number] [facility]
[2019-05-22] MEDS ORDERED: ALBUMIN 50 ML IVPB ONE ×2 (13:09)
[2019-05-22] MEDS ORDERED: CARVEDILOL 3.125 MG TAB PO SCH (17:00)
[2019-05-22] MEDS: WARFARIN SODIUM 2 MG TAB PO SCH (18:30)
[2019-05-22] MEDS: BUMETANIDE 0.25 MG/ML VIAL IV SCH ×2 (19:45→20:12)
[2019-05-22] MEDS: metOLazone 2.5 MG TAB PO SCH (19:45)
[2019-05-22] MEDS: traZODone HCL 50 MG TAB PO SCH (20:25)
[2019-05-22] MEDS: METOPROLOL TARTRATE 25 MG TAB PO SCH (20:25)
[2019-05-22] MEDS: ATORVASTATIN 10 MG TAB PO SCH (20:25)
[2019-05-22] MEDS ORDERED: SIMVASTATIN 20 MG TAB PO SCH (21:00)
[2019-05-22] MEDS: INSULIN DETEMIR 100 UNITS/ML PEN SUBCU SCH (21:54)
[2019-05-23] MEDS ORDERED: traMADol HCL 50 MG TAB PO PRN (01:35)
[2019-05-23] MEDS ORDERED: traMADol HCL 50 MG TAB ONE (01:35)
[2019-05-23] MEDS: INSULIN LISPRO 100 UNITS/ML PEN SUBCU SCH ×4 (07:30→21:01)
[2019-05-23] MEDS: metOLazone 2.5 MG TAB PO SCH (08:25)
[2019-05-23] MEDS: POTASSIUM CHLORIDE 10 MEQ TAB PO SCH (08:26)
[2019-05-23] MEDS: CETIRIZINE HCL 10 MG TAB PO SCH (08:26)
[2019-05-23] MEDS: ASPIRIN (CHEWABLE) 81 MG TAB PO SCH (08:26)
[2019-05-23] MEDS: METOPROLOL TARTRATE 25 MG TAB PO SCH ×2 (08:26→21:20)
[2019-05-23] MEDS: BUMETANIDE 0.25 MG/ML VIAL IV SCH ×2 (08:34→21:19)
--- NOTE | 2019-05-23 14:03 | PN ---
SUPERVISING PHYSICIAN: Zeb Cao MD DATE: 05/23/19 SUBJECTIVE: The patient once again does not really report any complaints, however, yesterday afternoon she seemed to be a little more short of breath. When I went to evaluate her, she was actually tachypneic and although diminished, did not have any rales. However, on exam, she did have a pretty significant jugular venous distention. Therefore, I stopped the albumin infusions and changed her to Bumex and added a dose of Zaroxolyn. She is still having pretty significant edema. OBJECTIVE: VITAL SIGNS: Blood pressure 108/79. Heart rate 101. Respiratory rate 18. Temperature 97.5. Oxygen saturation 97%. GENERAL: Ms. Thomson is a 78-year-old female in no severe distress. NEUROLOGIC: The patient is chronically confused, but alert. LUNGS: Diminished in the bases, but otherwise clear to auscultation bilaterally. CARDIOVASCULAR: Irregular rate and rhythm. She is in atrial fibrillation with rapid ventricular response per the bus driver/monitor, however, the rate is a little bit more controlled than it was. ABDOMEN: Soft. Positive bowel sounds. EXTREMITIES: Lower extremities as well as upper extremities still exhibiting pitting edema. LABORATORY: White count 4.5, hemoglobin 10.1, platelet count 178. Chemistry with sodium 138, potassium 4.3, chloride 98, CO2 26, BUN 47, creatinine 1.52, glucose 73, calcium 9.0. ASSESSMENT: 1. Congestive heart failure exacerbation. 2. Anasarca secondary to #1. 3. Acute on chronic renal insufficiency. 4. Hyperkalemia, resolved. 5. Type 2 diabetes mellitus. 6. Advanced dementia. PLAN: As stated above, I have stopped the albumin and changed her Lasix to Bumex and added Zaroxolyn. We will see if this does anything for her edema. She may need adjustment of her chronic Lasix therapy to be changed with maybe addition of Zaroxolyn as outpatient as well. We will recheck her labs tomorrow and evaluate her for possible discharge in the morning if she continues to do well. #[id number] [facility]
[2019-05-23] MEDS: WARFARIN SODIUM 2 MG TAB PO SCH (17:16)
[2019-05-23] MEDS: traZODone HCL 50 MG TAB PO SCH (20:58)
[2019-05-23] MEDS: ATORVASTATIN 10 MG TAB PO SCH (20:58)
[2019-05-23] MEDS: INSULIN DETEMIR 100 UNITS/ML PEN SUBCU SCH (21:00)
[2019-05-24] MEDS: INSULIN LISPRO 100 UNITS/ML PEN SUBCU SCH ×4 (07:15→21:05)
[2019-05-24] MEDS: metOLazone 2.5 MG TAB PO SCH (09:19)
[2019-05-24] MEDS: POTASSIUM CHLORIDE 10 MEQ TAB PO SCH (09:19)
[2019-05-24] MEDS: BUMETANIDE 0.25 MG/ML VIAL IV SCH ×2 (09:20→21:13)
[2019-05-24] MEDS: METOPROLOL TARTRATE 25 MG TAB PO SCH ×2 (09:21→21:13)
[2019-05-24] MEDS: CETIRIZINE HCL 10 MG TAB PO SCH (09:21)
[2019-05-24] MEDS: ASPIRIN (CHEWABLE) 81 MG TAB PO SCH (09:21)
--- NOTE | 2019-05-24 13:32 | RAD ---
EXAM DESCRIPTION: Chest,1 View CLINICAL HISTORY: 78 years Female, CHF exacerbation COMPARISON: 05/21/2019 IMPRESSION: The heart is mildly enlarged, with central pulmonary vascular congestion. Atherosclerosis in the thoracic aorta. The lungs are hyperexpanded. Mild bibasilar left greater than right airspace opacities with small to moderate left pleural effusion and small right pleural effusion. The findings remain concerning for CHF with pulmonary edema. No pneumothorax. No acute osseous abnormality. Electronically signed by: Roland Alexis MD 05/24/2019 1:31 PM CDT
[2019-05-24] MEDS: WARFARIN SODIUM 2 MG TAB PO SCH (18:52)
--- NOTE | 2019-05-24 20:09 | PN ---
DATE: 05/24/19 SUPERVISING PHYSICIAN: Zeb Cao M.D. SUBJECTIVE: The patient continues to be stable but she does show slow improvement. She has been resting well. She seems to be tolerating the aggressive diuresis. She has not had any further complaints. OBJECTIVE: VITAL SIGNS: Temperature 98.2, pulse 75, blood pressure 116/76, respirations 16, satting 99% on 1 liters nasal cannula. Heart rate shows a controlled atrial fibrillation on the bedside monitor. Weight 74.0 kg which is down from admission of 75. Current I's and O's show a negative balance of 2370. GENERAL: The patient appears to be resting comfortably in no acute distress. She does look frail. CHEST: Lung sounds are diminished towards the bases with just very faint rhonchi heard in the right upper lung field. HEART: Slightly irregular rate and rhythm with atrial fibrillation with controlled ventricular rate as noted on bedside monitor. ABDOMEN: Soft, non-tender. Positive bowel sounds. EXTREMITIES: Showing some edema approximately 2+ bilaterally with no pitting noted today. NEUROLOGIC: She is alert to herself but is chronically confused. LABORATORY: Chemistries show normal electrolytes with BUN 49, creatinine 1.51. BNP is still elevated at 445. Blood sugars are ranging from 77 to 176. RADIOLOGY: Chest x-ray showed heart mildly enlarged with central pulmonary vascular congestion with findings concerning for congestive heart failure with pulmonary edema. Echocardiogram is pending. ASSESSMENT: 1. Acute on chronic congestive heart failure with a mildly reduced ejection fraction with decompensation. 2. Anasarca secondary to #1. 3. Acute on chronic renal insufficiency still showing to not be at baseline levels probably due to aggressive management with diuretics. 4. Hyperkalemia, resolved. 5. Type 2 diabetes mellitus, stable. 6. Advanced dementia. PLAN: Will continue with Bumex and Zaroxolyn for another 24 hours for aggressive management considering that she still shows a significant amount of pulmonary edema and is having a little bit of rhonchi heard on the right side. Will follow labs closely. Plan to repeat a chest x-ray in the morning and await the final echocardiogram findings. Until we can make sure she is stable where we can transfer to outpatient management and she can return to [facility], will continue to monitor and treat as needed. #[id number] [facility]
[2019-05-24] MEDS: ATORVASTATIN 10 MG TAB PO SCH (21:04)
[2019-05-24] MEDS: traZODone HCL 50 MG TAB PO SCH (21:04)
[2019-05-24] MEDS: INSULIN DETEMIR 100 UNITS/ML PEN SUBCU SCH (21:05)
[2019-05-24] MEDS: IV SET AND CAP CHANGE INJ INJ SCH (21:07)
[2019-05-25] MEDS: INSULIN LISPRO 100 UNITS/ML PEN SUBCU SCH ×4 (07:17→20:40)
--- NOTE | 2019-05-25 07:53 | RAD ---
EXAM DESCRIPTION: Chest,1 View CLINICAL HISTORY: chf exacerbation COMPARISON: May 24, 2019 IMPRESSION: Single AP portable upright view of the chest shows enlargement of the cardiac silhouette without pulmonary vascular congestion. Moderate calcifications of the thoracic aorta stable. Lungs are hypoaerated. Bilateral left greater than right pleural effusions are stable from previous exam with patchy bilateral basilar atelectasis or infiltrates also relatively unchanged. Calcified pulmonary nodules are seen suggesting old granulomatous disease. Electronically signed by: Gustabo Gleason MD 05/25/2019 7:52 AM CDT
[2019-05-25] MEDS: metOLazone 2.5 MG TAB PO SCH (08:00)
[2019-05-25] MEDS: BUMETANIDE 0.25 MG/ML VIAL IV SCH (08:00)
[2019-05-25] MEDS: METOPROLOL TARTRATE 25 MG TAB PO SCH ×2 (08:01→20:43)
[2019-05-25] MEDS: ASPIRIN (CHEWABLE) 81 MG TAB PO SCH (08:01)
[2019-05-25] MEDS: CETIRIZINE HCL 10 MG TAB PO SCH (08:01)
[2019-05-25] MEDS: POTASSIUM CHLORIDE 10 MEQ TAB PO SCH (08:01)
[2019-05-25] MEDS: WARFARIN SODIUM 2 MG TAB PO SCH (17:16)
--- NOTE | 2019-05-25 17:58 | PN ---
DATE: 05/25/19 SUPERVISING PHYSICIAN: Zeb Cao M.D. SUBJECTIVE: The patient is actually doing very well. She is responding well to diuresis. She has almost had 8 liters taken off and has been transitioned over to oral diuretics. She did pull her IV out but at this point she is not on any IV therapy. Will go ahead and leave that out, but she is on fluid restrictions of less than 1200 for 24 hours. OBJECTIVE: VITAL SIGNS: Temperature 97.5, pulse 90, blood pressure 95/60, respirations 20, satting 93% on 2 liters nasal cannula. I's and O's show a negative balance of 4370. Weight is down to 73.2 kg. GENERAL: The patient is resting comfortably. Appears to be in no acute distress. She is alert. CHEST: Lung sounds are improved from yesterday, just diminished towards the bases. No rhonchi or wheezes noted. HEART: Slightly irregular rate and rhythm with a controlled ventricular rate noted on the bedside monitor. ABDOMEN: Soft, non-tender. Positive bowel sounds. EXTREMITIES: Today, show just some 1+ trace edema but improved significantly from yesterday. NEUROLOGIC: She is alert to herself but remains chronically confused. LABORATORY: BNP shows potassium 2.9, creatinine 1.45 with BUN 45 which is actually an improvement from admission. Blood sugars are showing to be stable between 117 and 206. Magnesium 1.8, calcium 8.7. Chest x-ray today per radiology interpretation shows the lungs are hyperaerated. There is a bilateral left greater than right pleural effusion but they are stable from previous exams. The cardiac silhouette is without pulmonary vascular congestion. ASSESSMENT: 1. Acute on chronic congestive heart failure with a mildly reduced ejection fraction with decompensation improving now on oral Lasix. 2. Anasarca secondary to #1, improving with aggressive diuretics now transitioned to oral Lasix. 3. Acute on chronic renal insufficiency still showing to not be at baseline levels probably due to aggressive management with diuretics with the patient showing improvement. 4. Hypokalemia due to aggressive diuresis. 5. Type 2 diabetes mellitus, stable. 6. Advanced dementia. PLAN: I have discontinued her Bumex and Zaroxolyn today and started her on oral Lasix 40 mg daily as well as increased her potassium to 20 mEq daily. She has shown significant improvement and has diuresed quite well. I will anticipate hopefully we will be able to discharge her tomorrow back to [facility] as long as she tolerates oral medications overnight and does not show any further exacerbation of her CHF. Until then will continue to monitor and treat as needed. #[id number] [facility]
[2019-05-25] MEDS ORDERED: WARFARIN SODIUM 2 MG TAB PO SCH (18:00)
[2019-05-25] MEDS: traZODone HCL 50 MG TAB PO SCH (20:40)
[2019-05-25] MEDS: ATORVASTATIN 10 MG TAB PO SCH (20:40)
[2019-05-25] MEDS: INSULIN DETEMIR 100 UNITS/ML PEN SUBCU SCH (20:41)
[2019-05-26] MEDS ORDERED: POTASSIUM CHLORIDE 20 MEQ TAB PO SCH (07:30)
[2019-05-26] MEDS ORDERED: POTASSIUM CHLORIDE 10 MEQ TAB PO SCH (07:30)
[2019-05-26] MEDS: INSULIN LISPRO 100 UNITS/ML PEN SUBCU SCH ×2 (07:41→11:47)
[2019-05-26] MEDS: METOPROLOL TARTRATE 25 MG TAB PO SCH (08:34)
[2019-05-26] MEDS: CETIRIZINE HCL 10 MG TAB PO SCH (08:34)
[2019-05-26] MEDS ORDERED: FUROSEMIDE 40 MG TAB PO SCH (09:00)
[2019-05-26] MEDS: ASPIRIN (CHEWABLE) 81 MG TAB PO SCH (09:53)
[2019-05-26 10:21] VITALS: BP 111/64; TEMP 97.6
[2019-05-26] MEDS ORDERED: WARFARIN SODIUM 5 MG TAB PO ONE (13:40)
[2019-05-26 13:44] VITALS: O2SAT 97
--- NOTE | 2019-05-30 17:07 | DS ---
SUPERVISING PHYSICIAN: Zeb Cao MD ADMISSION DIAGNOSES: 1. Congestive heart failure exacerbation. 2. Anasarca secondary to #1. 3. Renal insufficiency, acute on chronic likely. 4. Hyperkalemia likely secondary to renal insufficiency. 5. Type 2 diabetes mellitus. 6. Advanced dementia. DISCHARGE DIAGNOSES: 1. Acute on chronic congestive heart failure with a mildly reduced ejection fraction with decompensation improving now on oral Lasix. 2. Anasarca secondary to #1, improving with aggressive diuretics now transitioned to oral Lasix. 3. Acute on chronic renal insufficiency still showing to not be at baseline levels probably due to aggressive management with diuretics with the patient showing improvement. 4. Hypokalemia due to aggressive diuresis. 5. Type 2 diabetes mellitus, stable. 6. Advanced dementia. REASON FOR HOSPITALIZATION: : This is a 78 year-old female who is a shelter resident with advanced dementia. She is unable to give a good clinical history. However, she was sent by the shelter due to increased swelling over the last several days. In the E. R., she was evaluated and noted to have 3+ pitting edema to the lower extremities to the hips and the upper extremities. She also has central edema as well. Workup also included labs and x-rays. Chest x-ray was consistent with small bilateral pleural effusions and showed possible right base consolidation as well. Compared with the previous one it looks improved, however. She had some labs done as well and showed white count 5.8, hemoglobin 10.6, platelet count 209. INR is 1.4. She takes Warfarin for atrial fibrillation. Chemistry showed potassium 5.4, BUN 46, creatinine 1.52. Albumin 3.4. BNP 417. Given her increased swelling, elevated BNP and evidence of congestive heart failure exacerbation, she was referred for admission. At time of examination, the patient is alert and oriented. She has some mild tachypnea but does not look to be in any significant distress. She, as stated before, has advanced dementia and unable to give a good clinical history. LABORATORY: White count on discharge was 4,500, hemoglobin and hematocrit showing to be stable at 10.1 and 31.5 respectively, platelet count 178,000. Differential showed to be without a left shift. Coagulation studies on discharge, INR was 1.28, PTT 12.8. Chemistries on admission showed potassium 4.3, sodium 138, BUN initially 46, creatinine 1.52. Liver functions all within normal limits. BNP 417. Prior to discharge, creatinine 1.16, potassium 2.6, chloride 91, carbon dioxide 37, magnesium low at 1.7. Blood sugars ranged between 81 and 206. Urinalysis within normal limits. RADIOLOGY: Chest x-ray initially on admission per radiology interpretation showed persistent improvement in consolidation, right lower base, increased very small bilateral pleural effusion. She had multiple x-rays with last x-ray on 05/25/19 per radiology interpretation showed single-view chest, enlargement or cardiac silhouette with pulmonary vascular congestion. Please see that note for details. HOSPITAL COURSE: Ms. Thomson was admitted for exacerbation of congestive heart failure. She was aggressively diuresed initially with Lasix and albumin but showed some acute exacerbation and this was changed to Bumex and Zaroxolyn. She diuresed well over 8.5 liters. She was showing good response to treatment and was actually up to a chair and eating lunch. The swelling had dramatically decreased, she was feeling no complications and it was felt she was stable enough to continue with outpatient management. DISCHARGE PHYSICAL EXAMINATION: [facility] SIGNS: Temperature 97.6, pulse 86. Blood pressure 111/64, respirations 18, oxygen saturation 100% on 2 liters nasal cannula. ASSESSMENT: 1. Acute on chronic congestive heart failure with a mildly reduced ejection fraction with decompensation improving now on oral Lasix. 2. Anasarca secondary to #1, improving with aggressive diuretics now transitioned to oral Lasix. 3. Acute on chronic renal insufficiency still showing to not be at baseline levels probably due to aggressive management with diuretics with the patient showing improvement. 4. Hypokalemia due to aggressive diuresis. 5. Type 2 diabetes mellitus, stable. 6. Advanced dementia. PLAN: Ms. Thomson was discharged to be returned back to [facility]. She was to resume medications as instructed and restrict her daily fluids to less an 1800 cc per 24 hours. She was to have a recheck on INR and CT on Tuesday and results will be sent to Dr. Garces's office. She was told to return to the hospital should she have any worsening symptoms. Activities: As per physical therapy. Prescriptions prescribed on discharge included: 1. Lasix 40 mg daily. 2. Metoprolol 25 mg twice a day. 3. Potassium chloride 40 mEq daily. All other medications were continued which included Warfarin, Trazodone, Lipidox, insulin, Levemir, Citalopram, metoprolol, Dulcolax. Please see full list for details. CONDITION ON DISCHARGE: Stable and improved. DISPOSITION: The patient was discharged to [facility]. #[id number] MTDD
== END 2019-05-26 14:30 | DRG 291 ==
LOC: ER 15:31 → MS 18:34 → OBSVTOIN 18:34
PROVIDERS: ADMIT Nurse Practitioner; ATTEND Nurse Practitioner Family
DX: I13.0 Hypertensive heart and chronic kidney disease with heart failure and stage 1 through stage 4 chronic kidney disease, or unspecified chronic kidney disease (principal); I50.33 Acute on chronic diastolic (congestive) heart failure; N17.9 Acute kidney failure, unspecified; F03.90 Unspecified dementia, unspecified severity, without behavioral disturbance, psychotic disturbance, mood disturbance, and anxiety; I48.2 Chronic atrial fibrillation; N18.9 Chronic kidney disease, unspecified; E87.6 Hypokalemia; E11.22 Type 2 diabetes mellitus with diabetic chronic kidney disease; E78.5 Hyperlipidemia, unspecified; I25.10 Atherosclerotic heart disease of native coronary artery without angina pectoris; E66.9 Obesity, unspecified; Z79.01 Long term (current) use of anticoagulants; Z88.0 Allergy status to penicillin; Z91.048 Other nonmedicinal substance allergy status; Z79.82 Long term (current) use of aspirin; Z79.891 Long term (current) use of opiate analgesic; Z79.4 Long term (current) use of insulin; Z79.899 Other long term (current) drug therapy; Z68.32 Body mass index [BMI] 32.0-32.9, adult

== ENCOUNTER 2019-06-15 14:47 | Inpatient (IN) | payer MEDICARE, MEDICAID ==
--- NOTE | 2019-06-15 16:17 | RAD ---
EXAM DESCRIPTION: Abdomen Series CLINICAL HISTORY: sob, edema COMPARISON: Chest x-ray May 25, 2019 FINDINGS: AP supine and upright views of the abdomen show a nonspecific, nonobstructive bowel gas pattern with no evidence for free intraperitoneal air. No air-filled dilated loops of small bowel are seen. No significant air-fluid levels are identified. No obvious organomegaly is seen. No abnormal calcifications are seen in the expected location of the renal collecting systems. Single view of the chest shows enlargement of the cardiac silhouette without pulmonary venous congestion. Elevation of the right hemidiaphragm. Moderate pleural-based calcified plaque in the medial mid to lower right hemithorax with mild blunting of the right costophrenic angle. Calcified pulmonary nodule right upper lobe is seen. Bilateral hip arthroplasties are seen. IMPRESSION: Nonspecific abdominal series. Pleural-based calcified plaque of the right lower hemithorax could represent sequela of asbestos exposure versus previous pleurodesis. Mild elevation of the right hemidiaphragm and blunting of the right costophrenic angle likely represents chronic pleural thickening and/or small pleural effusion. Electronically signed by: Gustabo Gleason MD 06/15/2019 4:15 PM CDT
--- NOTE | 2019-06-15 17:44 | CT ---
EXAM: CT Abdomen and Pelvis Without Intravenous Contrast CLINICAL HISTORY: lower abd pain, renal failure, anasarca TECHNIQUE: Axial computed tomography images of the abdomen and pelvis without intravenous contrast. Sagittal and coronal reformatted images were created and reviewed. This CT exam was performed using one or more of the following dose reduction techniques: automated exposure control, adjustment of the mA and/or kV according to patient size, and/or use of iterative reconstruction technique. COMPARISON: Lumbar spine MRI 10/11/2014. FINDINGS: Limitations: Metallic streak artifact from bilateral hip arthroplasty limits assessment of surrounding structures. Lung bases: Unremarkable. No mass. No consolidation. Pleural space: Very small bilateral pleural effusions are present. There is right posterior basal pleural calcification. Heart: Cardiomegaly. ABDOMEN: Liver: There is a cortical calcification in the periphery of the liver. Gallbladder and bile ducts: Multiple gallstones present. No ductal dilation. Pancreas: Unremarkable. No ductal dilation. Spleen: Unremarkable. No splenomegaly. Adrenals: Unremarkable. No mass. Kidneys and ureters: There is a smoothly marginated homogeneously dense partially exophytic nodule measuring 1 cm diameter and the left kidney which is small. At least four similar and mostly smaller nodules present in the right kidney. No hydronephrosis or stone. Stomach and bowel: Moderate colonic stool. Extensive colonic diverticulosis noted. No intestinal obstruction. No mucosal thickening. PELVIS: Appendix: No findings to suggest acute appendicitis. Bladder: The urinary bladder is obscured by artifact. No stones. Reproductive: Unremarkable as visualized. ABDOMEN and PELVIS: Intraperitoneal space: There is chronic airway thickening and calcification. There is a small to moderate amount of ascitic fluid. There is no free air. Bones/joints: Old compression fracture L1 noted. Diffuse degenerative changes in the spine present. Soft tissues: Diffuse body wall edema present. Vasculature: Atherosclerosis of the aorta and branches. No aneurysm. Lymph nodes: Unremarkable. No enlarged lymph nodes. IMPRESSION: 1. Anasarca. 2. Chronic changes in both lung bases and small bilateral pleural effusions present. 3. Bilateral dense renal nodules likely complex cysts. If not already assessed, sonography recommended. Electronically signed by: Heather Mckoy MD 06/15/2019 5:43 PM CDT
[2019-06-15] MEDS ORDERED: metOLazone 2.5 MG TAB PO ONE (17:54)
[2019-06-15] MEDS ORDERED: BUMETANIDE 0.25 MG/ML VIAL ONE (18:19)
--- NOTE | 2019-06-15 18:32 | ED.PDOC ---
History of Present Illness - General Chief Complaint: Cardiovascular Problem Stated Complaint: left arm and bilateral leg swelling Time Seen by Provider: 06/15/19 14:50 Source: patient Exam Limitations: clinical condition - History of Present Illness Initial Comments: the patient is a 78-year-old female presenting to the emergency room secondary to increasing swelling essentially all over. The patient obviously has anasarca. She does not appear to be in acute distress at this time. She is oxygen dependent but is normally oxygen dependent. Oxygen saturations on her routine 2 L are 89-92%. The patient does have significant dementia. She is essentially incontinent. No respiratory distress at this time. She is in atrial fibrillation with mild tachycardia. he does report some mild generalized abdominal discomfort but apparently this is not a new complaint. the patient appears to have a similar episode of anasarca a few months ago. She was treated successfully with Bumex andmetolazone. Timing/Duration: other - 2-3 days Severity: moderate Improving Factors: nothing Worsening Factors: nothing Associated Symptoms: malaise Allergies/Adverse Reactions: Allergies Iodine Allergy (Verified 05/21/19 17:21) Penicillin G Allergy (Verified 05/21/19 17:21) Shellfish Allergy Allergy (Verified 05/21/19 17:21) cabbage family Allergy (Uncoded 05/21/19 17:21) Home Medications: Ambulatory Orders Aspirin [Aspirin Childrens] 81 mg PO DAILY 08/16/16 Cetirizine HCl [Zyrtec] 10 mg PO DAILY 08/16/16 Insulin Lispro [Humalog Kwikpen] See Protocol SC AC PRN 08/16/16 Trazodone HCl 50 mg PO BEDTIME 08/16/16 Atorvastatin Calcium [Lipitor] 10 mg PO BEDTIME 01/20/19 Diltiazem HCl [Diltiazem HCl ER] 120 mg PO DAILY 01/20/19 Docusate Sodium [Colace] 100 mg PO BID 01/20/19 Warfarin Sodium [Coumadin] 2 mg PO DAILY@1800 01/20/19 Insulin Detemir [Levemir Pen] 5 unit SUBCU BEDTIME #1 pen 01/23/19 Furosemide Tab [Lasix Tab] 40 mg PO DAILY tab 05/26/19 Metoprolol Tartrate [Lopressor] 25 mg PO BID tab 05/26/19 Potassium Chloride Tab [K-Dur] 40 meq PO DAILYBK tab 05/26/19 Magnesium Hydroxide [Milk Of Magnesia] 30 ml PO PRN 06/15/19 Review of Systems - Review of Systems Review of Systems: 06/15/19 18:33 the patient is really unable to give a reliable review of systems. Unable to Obtain Due To: dementia Past Medical History (General) - Patient Medical History Hx Seizures: Yes - post head inj as teen Hx Stroke: No Hx Dementia: Yes Hx Asthma: Yes Hx of COPD: No Hx Cardiac Disorders: Yes - A-Fib, CHF Hx Congestive Heart Failure: Yes Hx Pacemaker: No Hx Hypertension: Yes Hx Diabetes: Yes Hx Cancer: No Hx MRSA: No - Vaccination History Hx Tetanus, Diphtheria Vaccination: Yes - 4 yrs ago Hx Influenza Vaccination: No Hx Pneumococcal Vaccination: Yes - Social History Hx Tobacco Use: No Hx Alcohol Use: No Hx Substance Use: No Hx Substance Use Treatment: No Hx Depression: Yes Hx Physical Abuse: No Hx Emotional Abuse: No - Activities of Daily Living Halfway/Assisted Living (if applicable):: Matthew Sesay - Female History Patient : No Family Medical History - Family History Mother Family History: Unknown Living Status: Hx Family Diabetes: Yes Hx Family;Other: pt is poor historian, no fam present with pt upon admission. pt is oriented to self. Physical Exam - Physical Exam General Appearance: Alert, Comfortable, No apparent distress Eye Exam: bilateral normal Ears, Nose, Throat: hearing grossly normal, normal pharynx Neck: full range of motion, supple Respiratory: lungs clear - possibly some very mild bibasilar rales, normal breath sounds, no respiratory distress, no accessory muscle use Cardiovascular/Chest: normal peripheral pulses, no edema, tachycardia, irregularly irregular Peripheral Pulses: radial,right: 2+, radial,left: 2+ Gastrointestinal/Abdominal: soft, other - ild vague abdominal discomfort palpation. A little more over the bladder than otherwise. Rectal Exam: deferred Extremity: normal range of motion, non-tender, no pedal edema, normal capillary refill, other - the patient largely uses a wheelchair but does help with her transfers. Neurologic: photolithographic stripper II-XII nml as tested, alert, normal mood/affect - for her, other - he patient isessentially disoriented due to dementia. Skin Exam: normal color Comments: Vital Signs - 24 hr 06/15/19 06/15/19 06/15/19 15:38 18:28 18:29 Temperature 96 F L Pulse Rate 123 H Pulse Rate [ 81 Right Brachial] Respiratory 20 20 Rate Blood Pressure 106/69 [Right Arm] O2 Sat by Pulse 90 L Oximetry Progress - Progress Progress: 06/15/19 18:37 the patient is a 78-year-old female from the long-term presenting secondary to anasarca. The patient has apparently had this problem in the past. The patient apparently responded well to Bumex and metolazone at that time. She is being restarted on that here. She is going to have a Amaya catheter placed for the diuresis. She is essentially incontinent. She does have complex renal cystic-like structures that will need a outpatient ultrasound later. Blood pressures are low normal already. She is going to be dosed with a low dose of her metoprolol primarily for rate control. She does have some mild acute on chronic renal failure already. This will need to be followed. She does have mild hyperkalemia which will likely correct with diuresis. The patie nt does have significant congestive heart failure along with renal failure. In conjunction with her dementia this does make her six-month mortality very high. Urinalysis does need to be obtained as well to make sure there is no urinary tract infection complicating the picture. The lactic acid is not to be trusted as it was a difficult draw. Admit for continued care for anasarca, CHF and acute renal failure. - Results/Orders Results/Orders: CT scan of the abdomen and pelvis without contrast shows significant ascites and anasarca. She does have multiple nodules on her kidneys that appear to be consistent with complex cysts. Bladder is difficult to evaluate.. See report for further details. She does have small bilateral pleural effusions. telemetry monitoring shows atrial fibrillation with rapid ventricular rate. Laboratory Tests 06/15/19 06/15/19 06/15/19 15:50 15:50 15:50 WBC 6.2 RBC 4.04 L Hgb 11.4 L Hct 36.3 MCV 89.7 MCH 28.3 MCHC 31.5 L RDW 17.2 H Plt Count 280 MPV 9.3 Absolute Neuts (auto) 4.60 Absolute Lymphs (auto) 0.80 L Absolute Monos (auto) 0.70 Absolute Eos (auto) 0.10 Absolute Basos (auto) 0.00 Neutrophils % 74.3 Lymphocytes % 12.4 L Monocytes % 11.8 H Eosinophils % 0.8 L Basophils % 0.7 PT 22.4 H INR 2.26 H PTT (SP) 35.2 H Sodium 137 Potassium 5.3 H Chloride 95 L Carbon Dioxide 27 Anion Gap 20.3 H BUN 53 H Creatinine 1.62 H BUN/Creatinine Ratio 32.7 H Random Glucose 183 H Serum Osmolality 292.9 Lactic Acid Calcium 9.0 Magnesium 2.1 Total Bilirubin 1.7 H AST 25 ALT 16 Alkaline Phosphatase 101 Creatine Kinase 18 L CK-MB (CK-2) 6.7 H* CK-MB (CK-2) % 37.22 H Troponin I 0.04 B-Natriuretic Peptide 564.0 H* Serum Total Protein 6.2 L Albumin 3.6 Globulin 2.6 Albumin/Globulin Ratio 1.4 Amylase 58 Lipase 32 06/15/19 15:50 WBC RBC Hgb Hct MCV MCH MCHC RDW Plt Count MPV Absolute Neuts (auto) Absolute Lymphs (auto) Absolute Monos (auto) Absolute Eos (auto) Absolute Basos (auto) Neutrophils % Lymphocytes % Monocytes % Eosinophils % Basophils % PT INR PTT (SP) Sodium Potassium Chloride Carbon Dioxide Anion Gap BUN Creatinine BUN/Creatinine Ratio Random Glucose Serum Osmolality Lactic Acid 2.7 H* Calcium Magnesium Total Bilirubin AST ALT Alkaline Phosphatase Creatine Kinase CK-MB (CK-2) CK-MB (CK-2) % Troponin I B-Natriuretic Peptide Serum Total Protein Albumin Globulin Albumin/Globulin Ratio Amylase Lipase Departure - Departure Clinical Impression: Anasarca Congestive heart failure Qualifiers: Heart failure type: combined systolic and diastolic Heart failure chronicity: acute on chronic Qualified Code(s): I50.43 - Acute on chronic combined systolic (congestive) and diastolic (congestive) heart failure Acute on chronic renal failure Qualifiers: Acute renal failure type: unspecified Chronic kidney disease stage: stage 3 (moderate) Qualified Code(s): N17.9 - Acute kidney failure, unspecified; N18.3 - Chronic kidney disease, stage 3 (moderate) Disposition: Admit Patient Departure Forms: ED Discharge - Pt. Copy, Patient Portal Self Enrollment Referrals: BOBBY CANTU [Primary Care Provider] - 1-2 Weeks Home Medications: Ambulatory Orders Aspirin [Aspirin Childrens] 81 mg PO DAILY 08/16/16 Cetirizine HCl [Zyrtec] 10 mg PO DAILY 08/16/16 Insulin Lispro [Humalog Kwikpen] See Protocol SC AC PRN 08/16/16 Trazodone HCl 50 mg PO BEDTIME 08/16/16 Atorvastatin Calcium [Lipitor] 10 mg PO BEDTIME 01/20/19 Diltiazem HCl [Diltiazem HCl ER] 120 mg PO DAILY 01/20/19 Docusate Sodium [Colace] 100 mg PO BID 01/20/19 Warfarin Sodium [Coumadin] 2 mg PO DAILY@1800 01/20/19 Insulin Detemir [Levemir Pen] 5 unit SUBCU BEDTIME #1 pen 01/23/19 Furosemide Tab [Lasix Tab] 40 mg PO DAILY tab 05/26/19 Metoprolol Tartrate [Lopressor] 25 mg PO BID tab 05/26/19 Potassium Chloride Tab [K-Dur] 40 meq PO DAILYBK tab 05/26/19 Magnesium Hydroxide [Milk Of Magnesia] 30 ml PO PRN 06/15/19 Decision To Admit - Decistion To Admit Decision to Admit Reason: Medical Nature Decision to Admit Date: 06/15/19 Decision to Admit Time: 18:25
[2019-06-15] MEDS ORDERED: METOPROLOL TARTRATE 25 MG TAB PO ONE (18:34)
[2019-06-15] MEDS ORDERED: cefTRIAXone SODIUM 1 GM in SODIUM CHL 0.9% 50ML MIN-BAG+ 50 ML IVPB ONE (19:47)
[2019-06-15] MEDS ORDERED: levoFLOXacin 250MG IV 250 MG in PREMIX BAG 1 BAG IVPB ONE (19:47)
--- NOTE | 2019-06-15 19:58 | HP ---
SUPERVISING PHYSICIAN: Tacho Bland M.D. CHIEF COMPLAINT: Swelling all over. HISTORY OF PRESENT ILLNESS: This is a 78 year-old female patient that lives at [facility] that has a significant history of congestive heart failure with anasarca. She has actually been in the hospital several times with the same complaints. At the assisted her oxygen saturations were in the upper 80s. She does routinely wear 2 liters nasal cannula. In the Emergency Room, her initial vital signs showed a temperature 96, heart rate 81, blood pressure 106/69, respiratory rate 20, O2 sat 90% on 2 liters nasal cannula. She has fairly severe dementia. She was treated with Bumex and Metolazone. Lab was drawn. Her WBC were 6.2 with hemoglobin 11.4, hematocrit 36.3. Sodium 137, potassium 5.3, chloride 95, BUN 53, creatinine 1.62. Her baseline creatinine is typically 0.96. Lactic acid was 2.7. Total bilirubin 1.7. CK-MB was 6.7, troponin 0.04. BNP 564 with albumin 3.6, total serum protein 6.2. Urinalysis showed moderate urine blood, large amount of urine leukocyte esterase, too numerous to count urine WBCs and 4+ urine bacteria. I was called for hospital admission. PAST MEDICAL HISTORY: 1. Hypertension. 2. Diabetes mellitus type 2. 3. Hyperlipidemia. 4. Coronary artery disease. 5. Chronic atrial fibrillation on Warfarin. 6. Diastolic heart failure. PAST SURGICAL HISTORY: 1. Hysterectomy. 2. Bilateral cataract surgery. HOME MEDICATIONS: Per the EMR and awaiting verification. ALLERGIES: IODINE, PENICILLIN G, SHELLFISH AND CABBAGE. FAMILY HISTORY: Unknown. SOCIAL HISTORY: No history of smoking or ETOH. She lives at [facility]. REVIEW OF SYSTEMS: Unable to obtain due to the patient's advanced dementia as well as her poor communication. Most of her information was obtained from medical records. PHYSICAL EXAMINATION: VITAL SIGNS: Temperature 96.8, heart rate 116, blood pressure 97/57, respiratory rate 20, O2 sat 94% on 2 liters nasal cannula. GENERAL: This is a 78 year-old female patient lying in her hospital bed. She is in no acute distress. HEENT: Normocephalic and atraumatic. Oropharynx is clear. NECK: Supple without mass. RESPIRATORY: Diminished at the bases, otherwise clear to auscultation. CHEST: There is equal rise and fall of the chest with inspiration and expiration. CARDIOVASCULAR: Irregular rate and rhythm. GASTROINTESTINAL: Anasarca is present. It is soft. Abdomen is rounded. Bowel sounds are positive. EXTREMITIES: +2 edema to bilateral legs. Bilateral pedal pulses are +1. She does have a trace of edema to her upper extremities. Radial pulses are +2 bilaterally. NEUROLOGIC: She is demented and confused. She opens her eyes to command. No focal deficits noted. LABORATORY: Labs are as per the History of Present Illness. RADIOLOGY: Abdomen and pelvis CT shows: 1. Anasarca. 2. Chronic changes of both lung bases and small bilateral pleural effusions present. 3. Bilateral dense renal nodules likely complex cysts. Sonography is recommended. Abdominal x-ray shows nonspecific abdominal series. Pleural based calcified plaque of the right lower hemithorax could represent sequelae or asbestos exposure versus previous pleurodesis. Mild elevation of the right hemidiaphragm and blunting of the right costophrenic angle likely represents chronic pleural thickening and/or small pleural effusion. All other labs and films have been reviewed via the EMR. ASSESSMENT: 1. Congestive heart failure of diastolic etiology, unknown ejection fraction as there is no present echocardiogram to review. 2. Urinary tract infection. 3. Anasarca secondary to #1. 4. Renal insufficiency most likely acute on chronic. She has a baseline creatinine of 0.96. Her admitting creatinine is 1.62. 5. Hyperkalemia secondary to renal insufficiency. Her potassium today was 5.3. 6. Diabetes mellitus type 2. 7. Advanced dementia. PLAN: Will admit the patient to the hospital. I have initiated the CHF guidelines. Her medications will be restarted once her home medications are verified. She received some Metolazone and Bumex in the Emergency Room. I have not given her any additional doses, but I have started her on IV Lasix tomorrow overnight. I will give her a dose of albumin due to the anasarca. Fluids will also be given overnight. I will recheck her lab in the morning. She is also on blood sugar checks a.c. and h.s. with Humalog sliding scale coverage. Will continue to monitor closely and follow as needed. #[id number] [facility]
[2019-06-15] MEDS ORDERED: cefTRIAXone SODIUM 1 GM VIAL ONE (20:09)
[2019-06-15] MEDS ORDERED: SODIUM CHL 0.9% 50ML MIN-BAG+ 50 ML IVPB ONE (20:10)
[2019-06-15] MEDS ORDERED: levoFLOXacin 250MG IV 50 ML IVPB ONE (20:10)
[2019-06-15] MEDS ORDERED: GLUCAGON INJ 1 MG VIAL SUBCU PRN (20:58)
[2019-06-15] MEDS ORDERED: DEXTROSE 50% 25 GM/50 ML SYG IV PRN (20:58)
[2019-06-15] MEDS: INSULIN LISPRO 100 UNITS/ML PEN SUBCU SCH (21:00)
[2019-06-15] MEDS ORDERED: NITROGLYCERIN 0.4 MG 25 EA TAB SL PRN (21:01)
[2019-06-15] MEDS ORDERED: ONDANSETRON INJ 4 MG/2 ML VIAL IV PRN (21:01)
[2019-06-15] MEDS: traZODone HCL 50 MG TAB PO SCH (21:58)
[2019-06-15] MEDS: DOCUSATE SODIUM 100 MG CAP PO SCH (21:58)
[2019-06-15] MEDS: IV SET AND CAP CHANGE INJ INJ SCH (21:59)
[2019-06-15] MEDS: ATORVASTATIN 10 MG TAB PO SCH (21:59)
[2019-06-15] MEDS: METOPROLOL TARTRATE 25 MG TAB PO SCH (21:59)
[2019-06-15] MEDS: INSULIN DETEMIR 100 UNITS/ML PEN SUBCU SCH (22:00)
[2019-06-16] MEDS ORDERED: cefTRIAXone SODIUM 1 GM in SODIUM CHL 0.9% 50ML MIN-BAG+ 50 ML IVPB ONE (00:38)
[2019-06-16] MEDS ORDERED: cefTRIAXone SODIUM 1 GM VIAL ONE (00:47)
[2019-06-16] MEDS ORDERED: ALBUMIN 100 ML IVPB ONE ×2 (00:47→19:23)
[2019-06-16] MEDS ORDERED: SODIUM CHL 0.9% 50ML MIN-BAG+ 50 ML IVPB ONE ×2 (00:48→14:05)
[2019-06-16] MEDS ORDERED: ALBUMIN 25 GM in PREMIX BOTTLE 2 BOTTLE IVPB ONE ×2 (01:00→19:14)
[2019-06-16] MEDS ORDERED: METOPROLOL TARTRATE 25 MG TAB PO ONE (01:14)
[2019-06-16] MEDS ORDERED: METOPROLOL TARTRATE INJ 5 MG/5 ML VIAL IV ONE ×3 (04:11→19:16)
[2019-06-16] MEDS: PANTOPRAZOLE SODIUM IV 40 MG VIAL IV SCH (06:22)
[2019-06-16] MEDS: INSULIN LISPRO 100 UNITS/ML PEN SUBCU SCH ×4 (07:39→21:06)
[2019-06-16] MEDS: POTASSIUM CHLORIDE 20 MEQ TAB PO SCH (07:47)
[2019-06-16] MEDS ORDERED: FUROSEMIDE INJ 40 MG/4 ML VIAL IV SCH (09:00)
[2019-06-16] MEDS: DOCUSATE SODIUM 100 MG CAP PO SCH ×2 (09:43→21:05)
[2019-06-16] MEDS: METOPROLOL TARTRATE 25 MG TAB PO SCH ×2 (09:43→21:05)
[2019-06-16] MEDS: CETIRIZINE HCL 10 MG TAB PO SCH (09:43)
[2019-06-16] MEDS: ASPIRIN (CHEWABLE) 81 MG TAB PO SCH (09:43)
[2019-06-16] MEDS: SODIUM CHLORIDE 0.9% (FLUSH) 10 ML SYG IV SCH ×2 (09:44→21:06)
--- NOTE | 2019-06-16 12:06 | RAD ---
EXAM DESCRIPTION: Chest,1 View CLINICAL HISTORY: 78 years Female, CHF COMPARISON: Previous study May 25, 2019 TECHNIQUE: AP portable chest. FINDINGS: Heart size is large with prominent central pulmonary vascularity. Bilateral pulmonary infiltrates are seen in the perihilar and lower lobe regions worrisome for pneumonia. Findings are similar to previous study. Right hemidiaphragm is elevated. No pulmonary mass or worrisome nodule. No pneumothorax or pleural effusion. Deformed right clavicle consistent with old healed fracture. IMPRESSION: Bibasilar pulmonary infiltrates. Large heart with mild vascular congestion. Elevated right hemidiaphragm. Calcified granuloma in the right upper lobe. Electronically signed by: Gomez Onofre MD 06/16/2019 8:12 AM CDT
[2019-06-16] MEDS: BUMETANIDE 0.25 MG/ML VIAL IV SCH ×2 (12:15→19:16)
[2019-06-16] MEDS: SODIUM CHLORIDE 0.9% 1000ML 1,000 ML IVS PRN ×2 (12:16→23:45)
[2019-06-16] MEDS: WARFARIN SODIUM 2 MG TAB PO SCH (12:16)
[2019-06-16] MEDS ORDERED: VANCOMYCIN HCL INJ 1,000 MG in SODIUM CHLORIDE 0.9% 250ML 250 ML IVPB ONE (12:43)
[2019-06-16] MEDS ORDERED: VANCOMYCIN PER PHARMACY IVPB SCH (13:00)
[2019-06-16] MEDS ORDERED: CEFEPIME 2 GM VIAL ONE (14:06)
[2019-06-16] MEDS: CEFEPIME 2 GM in SODIUM CHL 0.9% 50ML MIN-BAG+ 50 ML IVPB SCH (14:07)
[2019-06-16] MEDS ORDERED: SODIUM CHLORIDE 0.9% 250ML 250 ML ONE (15:42)
[2019-06-16] MEDS ORDERED: VANCOMYCIN HCL INJ 1,000 MG VIAL IVPB ONE (15:42)
[2019-06-16] MEDS: VANCOMYCIN HCL INJ 750 MG in SODIUM CHLORIDE 0.9% 250ML 250 ML IVPB SCH (15:48)
[2019-06-16] MEDS: FUROSEMIDE INJ 40 MG/4 ML VIAL IV SCH ×2 (16:38→23:30)
[2019-06-16] MEDS ORDERED: BUMETANIDE 0.25 MG/ML VIAL IV ONE (17:53)
[2019-06-16] MEDS ORDERED: SODIUM CHLORIDE 0.9% 500ML 500 ML IVS ONE (19:14)
[2019-06-16] MEDS: traZODone HCL 50 MG TAB PO SCH (21:05)
[2019-06-16] MEDS: ATORVASTATIN 10 MG TAB PO SCH (21:05)
[2019-06-16] MEDS: INSULIN DETEMIR 100 UNITS/ML PEN SUBCU SCH (21:12)
[2019-06-17] MEDS ORDERED: DIGOXIN INJ 0.5 MG/2 ML AMP IV ONE ×3 (01:43→14:00)
[2019-06-17] MEDS: PANTOPRAZOLE SODIUM IV 40 MG VIAL IV SCH (06:20)
[2019-06-17] MEDS: INSULIN LISPRO 100 UNITS/ML PEN SUBCU SCH ×4 (07:21→21:05)
[2019-06-17] MEDS: POTASSIUM CHLORIDE 20 MEQ TAB PO SCH (07:38)
[2019-06-17] MEDS ORDERED: SODIUM CHL 0.9% 50ML MIN-BAG+ 50 ML IVPB ONE (08:06)
[2019-06-17] MEDS ORDERED: CEFEPIME 2 GM VIAL ONE (08:07)
--- NOTE | 2019-06-17 08:34 | PN ---
DATE: 06/16/19 SUPERVISING PHYSICIAN: Tacho Bland MD SUBJECTIVE: The patient continues to do okay. Blood pressure is showing to be on the low side but review of past records show she is showing stable. Her lactic acid has returned to baseline levels and she is tolerating diuretics. OBJECTIVE: VITAL SIGNS: Temperature 97, pulse 110 to 122, blood pressure 91/60, respirations 16, oxygen saturation 98% on 2 liters nasal cannula. I&O: negative balance with a weight of 72.2 kg. GENERAL: Patient appears doing unwell and tired but shows to be resting and not in any acute distress. CHEST: Lung sounds are diminished towards the bases but no obvious rhonchi heard today. HEART: Regular rate and rhythm with a left response noted on monitor but patient remaining hemodynamically stable. ABDOMEN: Noted edema with anasarca present just below the umbilicus that extends down to her bilateral lower extremities down to about the knees. She does have active bowel sounds, does not note any tenderness on palpation. EXTREMITIES: 2+ edema to both upper and lower extremities. NEUROLOGIC: She has dementia and confusion but will answer some questions appropriately and responds to family members that are present in the room. She sometimes will follow commands and she has no focal motor deficits. LABORATORY: Sodium 138, potassium 5.7, creatinine 1.76, BUN 57. Blood sugars remain elevated between 119 and 151, lactic acid 1.5 to 2.7. Liver functions are showing just slightly elevated bilirubin at 1.6, otherwise was within normal limits. MICROBIOLOGY: Urine culture pending. RADIOLOGY: Single view chest x-ray this morning per radiology interpretation showed bilateral pleural infiltrates seen in the perihilar and lower lobe regions, worsened for pneumonia with findings similar to previous studies with elevated hemidiaphragm and noted left large heart with mild vascular congestion. ASSESSMENT: 1. Bilateral pneumonia with concerns for healthcare acquired as the patient resides in a long-term care facility requiring initiation of antibiotics to include Ceftin and vancomycin. 2. Acute on chronic congestive heart failure with a reduced ventricular function, noted ejection fraction of 40 to 50% on last echocardiogram on 05/24/19. 3. Renal insufficiency due to prerenal azotemia secondary to anasarca and exacerbation of congestive heart failure. Patient's baseline creatinine at 0.96 with admitting creatinine of 1.62. 4. Urinary tract infection, cultures pending. 5. Hyperkalemia, probably due to renal insufficiency but showing improvement with improvement. 6. Diabetes mellitus type 2. 7. Advanced dementia. PLAN: Will continue with current treatment at this point but start initiation of antibiotic therapy for developing pneumonia. Given that she does have a history of recently being in the hospital and resides at long-term care and given her comorbidities and age, we will start her on Ceftin to cover pseudomonas as well as other gram positives, gram negatives, with also concern for methicillin resistant aureus, will start her on vancomycin per pharmacy protocol. Her antibiotic overage should be sufficient to cover urinary tract infection awaiting those cultures. Will be a little bit more aggressive with the diuresis. Will start her on some Bumex every 12 hours, 1 mg, and Lasix 40 every 8 hours for at least 24 hours as well as Zaroxolyn. Will anticipate she will probably need at least a couple more days given her underlying history and her previous treatment course. She does remain on Humalog sliding scale. Until we can transition her to outpatient management, we will continue to monitor and treat as needed #[id number] [facility]
[2019-06-17] MEDS: FUROSEMIDE INJ 40 MG/4 ML VIAL IV SCH ×3 (08:52→23:35)
[2019-06-17] MEDS: BUMETANIDE 0.25 MG/ML VIAL IV SCH ×2 (08:52→17:33)
[2019-06-17] MEDS: ASPIRIN (CHEWABLE) 81 MG TAB PO SCH (08:52)
[2019-06-17] MEDS: METOPROLOL TARTRATE 25 MG TAB PO SCH ×2 (08:53→21:07)
[2019-06-17] MEDS: CEFEPIME 2 GM in SODIUM CHL 0.9% 50ML MIN-BAG+ 50 ML IVPB SCH (08:53)
[2019-06-17] MEDS: CETIRIZINE HCL 10 MG TAB PO SCH (08:53)
[2019-06-17] MEDS: DOCUSATE SODIUM 100 MG CAP PO SCH ×2 (08:53→21:04)
[2019-06-17] MEDS: SODIUM CHLORIDE 0.9% (FLUSH) 10 ML SYG IV SCH ×2 (08:54→21:07)
[2019-06-17] MEDS: WARFARIN SODIUM 2 MG TAB PO SCH (12:26)
[2019-06-17] MEDS: SODIUM CHLORIDE 0.9% 1000ML 1,000 ML IVS PRN ×2 (12:26→21:09)
[2019-06-17] MEDS ORDERED: SODIUM CHLORIDE 0.9% 250ML 250 ML ONE (15:24)
[2019-06-17] MEDS ORDERED: VANCOMYCIN HCL INJ 1,000 MG VIAL IVPB ONE (15:24)
[2019-06-17] MEDS: VANCOMYCIN HCL INJ 750 MG in SODIUM CHLORIDE 0.9% 250ML 250 ML IVPB SCH (15:35)
--- NOTE | 2019-06-17 20:16 | PN ---
DATE: 06/17/19 SUPERVISING PHYSICIAN: Tacho Bland M.D. SUBJECTIVE: The patient has been doing well since we started her on Digoxin. Her heart rate was not being controlled with Cardizem. Her blood pressure is low and she was not responding to additional beta blockers therefore we did start her on Digoxin which she is responding well to and maintaining heart rate in the 80s to 90s. She still remains on fairly aggressive diuretic regimen but is tolerating without any complications. OBJECTIVE: VITAL SIGNS: Temperature 97.5, pulse 89, blood pressure 106/73, respirations 17, satting 99% on 2 liters nasal cannula. I's and O's are showing a negative balance of 1231, weight is 72 kg. GENERAL: The patient is resting comfortably. She will shake her head to yes or no questions but does interact with her son when he is in the room. CHEST: Sounds are diminished towards the bases but no obvious rhonchi or rales are noted. HEART: Slightly irregular rate and rhythm with a good ventricular control rate noted on the monitor. ABDOMEN: Continued edema and anasarca showing some slight improvement extending from the umbilicus down to just above the knees. Bowel sounds are active. There is no tenderness on palpation. EXTREMITIES: Still showing 2+ edema to both upper and lower extremities. NEUROLOGIC: She has chronic dementia but is alert. Will shake yes or no to simple questions and interacts with her son. No obvious focal deficits are noted. LABORATORY: White count 3,700, hemoglobin 9.8, hematocrit 30.9, platelet count 204,000. Differential shows to be without a left shift. INR is 2.7 today. Chemistries show normal electrolytes with BUN 54, creatinine 1.69. Blood sugars range between 73 and 157, calcium 8.2. MICROBIOLOGY: Urine culture is pending. RADIOLOGY: No additional radiographic studies. ASSESSMENT: 1. Bilateral pneumonia showing some slight improvement on Cefepime and vancomycin again with high risk factors being that she has been in a exterminator helper care facility and recently in the hospital. 2. Atrial fibrillation with rapid ventricular response having failed to have good ventricular control with Cardizem but responding to Digoxin and showing a controlled ventricular rate at this point. 3. Acute on chronic congestive heart failure with a reduced ventricular function, noted ejection fraction of 40 to 50% on last echocardiogram on 05/24/19 showing slow response with diuresis. 4. Renal insufficiency with prerenal azotemia secondary to anasarca and exacerbation of congestive heart failure and aggressive diuretic management with the patient's baseline creatinine at 0.96 and current creatinine being elevated. 5. Urinary tract infection with cultures pending on antibiotics. 6. Hyperkalemia, now resolved. 7. Diabetes mellitus type 2 showing to be stable. 8. Advanced dementia. PLAN: Will continue antibiotic therapy at this point for underlying urinary tract infection as well as pneumonia with Cefepime and vancomycin. Will continue with aggressive management with diuretics with Bumex, Zaroxolyn and Lasix. I did start her on some Digoxin last night and she has had good control. Will continue oral therapy based off her heart rate and levels in the morning once we get a therapeutic level. I did discontinue the Cardizem. Will closely monitor for response to this change in management of her atrial fibrillation. Will plan to again recheck labs in the morning. Until we can transition to outpatient management will continue to monitor and treat as needed. #[id number] [facility]
[2019-06-17] MEDS: ATORVASTATIN 10 MG TAB PO SCH (21:04)
[2019-06-17] MEDS: traZODone HCL 50 MG TAB PO SCH (21:05)
[2019-06-17] MEDS: INSULIN DETEMIR 100 UNITS/ML PEN SUBCU SCH (21:05)
[2019-06-17] MEDS: IV SET AND CAP CHANGE INJ INJ SCH (21:11)
[2019-06-18] MEDS: SODIUM CHLORIDE 0.9% (FLUSH) 10 ML SYG IV PRN ×2 (06:11→23:33)
[2019-06-18] MEDS: PANTOPRAZOLE SODIUM IV 40 MG VIAL IV SCH (06:11)
[2019-06-18] MEDS ORDERED: CEFEPIME 2 GM VIAL ONE (07:17)
[2019-06-18] MEDS ORDERED: SODIUM CHL 0.9% 50ML MIN-BAG+ 50 ML IVPB ONE (07:17)
[2019-06-18] MEDS: INSULIN LISPRO 100 UNITS/ML PEN SUBCU SCH ×4 (07:55→21:25)
[2019-06-18] MEDS: POTASSIUM CHLORIDE 20 MEQ TAB PO SCH (08:00)
[2019-06-18] MEDS: DOCUSATE SODIUM 100 MG CAP PO SCH ×2 (08:01→21:26)
[2019-06-18] MEDS: METOPROLOL TARTRATE 25 MG TAB PO SCH ×3 (08:01→21:41)
[2019-06-18] MEDS: FUROSEMIDE INJ 40 MG/4 ML VIAL IV SCH ×3 (08:01→23:32)
[2019-06-18] MEDS: CETIRIZINE HCL 10 MG TAB PO SCH (08:01)
[2019-06-18] MEDS: BUMETANIDE 0.25 MG/ML VIAL IV SCH ×2 (08:01→16:35)
[2019-06-18] MEDS: CEFEPIME 2 GM in SODIUM CHL 0.9% 50ML MIN-BAG+ 50 ML IVPB SCH (08:01)
[2019-06-18] MEDS: ASPIRIN (CHEWABLE) 81 MG TAB PO SCH (08:01)
[2019-06-18] MEDS: SODIUM CHLORIDE 0.9% (FLUSH) 10 ML SYG IV SCH ×2 (08:02→21:28)
[2019-06-18] MEDS: SODIUM CHLORIDE 0.9% 1000ML 1,000 ML IVS PRN (10:50)
[2019-06-18] MEDS ORDERED: VANCOMYCIN HCL INJ 1,000 MG VIAL IVPB ONE (10:51)
[2019-06-18] MEDS ORDERED: SODIUM CHLORIDE 0.9% 250ML 250 ML ONE (10:51)
[2019-06-18] MEDS: WARFARIN SODIUM 2 MG TAB PO SCH (11:00)
--- NOTE | 2019-06-18 13:13 | PN ---
SUPERVISING PHYSICIAN: Zeb Cao MD DATE: 06/18/19 SUBJECTIVE: The patient continues to be confused, but this is chronic for the patient. She does not really have any complaints today. Her heart is better controlled, however, digoxin level this morning looks quite elevated, which is to be expected after her loading dose. OBJECTIVE: VITAL SIGNS: Blood pressure 101/52. Heart rate 62. Respiratory rate 20. Temperature 97.3. Oxygen saturation 95%. GENERAL: Ms. Thomson is a 78-year-old female who is in no active distress currently. NEUROLOGIC: She is confused, but no focal deficits. LUNGS: Diminished in the bases, but otherwise clear to auscultation bilaterally. CARDIOVASCULAR: Regular rate and rhythm. Normal S1, S2. ABDOMEN: Soft. Positive bowel sounds. EXTREMITIES: Lower extremities with 2+ pitting edema, which is pretty much generalized. ASSESSMENT: 1. Bilateral pneumonia, on cefepime and vancomycin, which is stepwise improving. 2. Atrial fibrillation with a controlled rate at this time on digoxin, however, we are having to hold off on daily doses until her dig level is improved. 3. Acute on chronic congestive heart failure. 4. Renal insufficiency. 5. Urinary tract infection with pending cultures. 6. Hyperkalemia, resolved. 7. Diabetes mellitus, type 2. 8. Advanced dementia. PLAN: At this time, the patient will maintain on her antibiotics as well as diuretic therapy. I am holding off on digoxin due to the loading dose causing the dig level to be high. I will recheck in the morning and start a daily regimen if the level has improved. #[id number] [facility]
[2019-06-18] MEDS: VANCOMYCIN HCL INJ 750 MG in SODIUM CHLORIDE 0.9% 250ML 250 ML IVPB SCH (15:52)
[2019-06-18] MEDS ORDERED: PANTOPRAZOLE SODIUM TAB 40 MG PO ONE (19:52)
[2019-06-18] MEDS: traZODone HCL 50 MG TAB PO SCH (21:26)
[2019-06-18] MEDS: ATORVASTATIN 10 MG TAB PO SCH (21:26)
[2019-06-18] MEDS: INSULIN DETEMIR 100 UNITS/ML PEN SUBCU SCH (21:27)
[2019-06-18] MEDS: IV SET AND CAP CHANGE INJ INJ SCH (21:31)
[2019-06-19] MEDS: PANTOPRAZOLE SODIUM TAB 40 MG PO SCH (05:42)
[2019-06-19] MEDS: INSULIN LISPRO 100 UNITS/ML PEN SUBCU SCH ×4 (07:10→21:00)
[2019-06-19] MEDS ORDERED: SODIUM CHL 0.9% 50ML MIN-BAG+ 50 ML IVPB ONE (07:20)
[2019-06-19] MEDS ORDERED: CEFEPIME 2 GM VIAL ONE (07:22)
[2019-06-19] MEDS: FUROSEMIDE INJ 40 MG/4 ML VIAL IV SCH ×3 (07:29→23:45)
[2019-06-19] MEDS: POTASSIUM CHLORIDE 20 MEQ TAB PO SCH (07:29)
[2019-06-19] MEDS ORDERED: POTASSIUM CHLORIDE ELIXIR 20 MEQ/15 ML UD PO ONE (08:06)
[2019-06-19] MEDS: CETIRIZINE HCL 10 MG TAB PO SCH (08:48)
[2019-06-19] MEDS: BUMETANIDE 0.25 MG/ML VIAL IV SCH ×2 (08:48→17:04)
[2019-06-19] MEDS: ASPIRIN (CHEWABLE) 81 MG TAB PO SCH (08:48)
[2019-06-19] MEDS: DOCUSATE SODIUM 100 MG CAP PO SCH ×2 (08:48→20:05)
[2019-06-19] MEDS: CEFEPIME 2 GM in SODIUM CHL 0.9% 50ML MIN-BAG+ 50 ML IVPB SCH (08:48)
[2019-06-19] MEDS: METOPROLOL TARTRATE 25 MG TAB PO SCH ×2 (08:48→20:06)
[2019-06-19] MEDS: SODIUM CHLORIDE 0.9% (FLUSH) 10 ML SYG IV SCH ×2 (08:49→20:05)
--- NOTE | 2019-06-19 09:08 | PCM.PROG ---
Progress Note Subjective: Patient is confused, but at baseline. No significant change in status per nursing staff. She is eating breakfast at this time. Objective: Vital Signs - 24 hr 06/18/19 06/18/19 06/18/19 10:00 13:00 14:00 Temperature 97.8 F 97.8 F Pulse Rate 61 Pulse Rate [ 62 62 Right Brachial] Respiratory 16 16 Rate Blood Pressure 126/71 126/71 [Right Arm] O2 Sat by Pulse 97 97 Oximetry 06/18/19 06/18/19 06/18/19 17:00 18:00 20:40 Temperature 97.4 F L Pulse Rate 64 Pulse Rate [ 54 L Right Brachial] Respiratory 16 Rate Blood Pressure 109/58 [Right Arm] O2 Sat by Pulse 94 L 93 L Oximetry 06/18/19 06/18/19 06/19/19 21:00 22:00 01:00 Temperature 97.3 F L Pulse Rate 64 66 Pulse Rate [ 68 Right Brachial] Respiratory 16 Rate Blood Pressure 102/62 [Right Arm] O2 Sat by Pulse 88 L Oximetry 06/19/19 06/19/19 06/19/19 02:00 02:20 05:00 Temperature 98.2 F Pulse Rate 66 Pulse Rate [ 67 Right Brachial] Respiratory 16 Rate Blood Pressure 98/57 [Right Arm] O2 Sat by Pulse 94 L 88 L Oximetry 06/19/19 06/19/19 06:00 07:00 Temperature 97.6 F Pulse Rate Pulse Rate [ 74 78 Right Brachial] Respiratory 16 Rate Blood Pressure [Right Arm] O2 Sat by Pulse 97 Oximetry GENERAL: 78 year old female who is no active distress at this time. NEURO: Confused, but no focal deficits. LUNGS: Diminished in the bases, but otherwise clear to auscultation bilaterally. CV: IRR. Normal S1 and S2. Rate controlled. ABD: Soft, positive BS. EXT: Lower extremities with pitting edema, generalized edema as well. 06/19/19 06:30 Pantoprazole Tablet [Protonix] 40 mg PO DAILY@0630 06/19/19 11:30 GLUCOSE, FINGER STICK ACHS 06/19/19 16:30 GLUCOSE, FINGER STICK ACHS 06/19/19 21:00 GLUCOSE, FINGER STICK ACHS 06/20/19 14:15 VANCOMYCIN TROUGH Routine Laboratory Results - last 24 hr 06/18/19 06/18/19 06/18/19 11:25 15:20 16:14 WBC RBC Hgb Hct MCV MCH MCHC RDW Plt Count MPV Absolute Neuts (auto) Absolute Lymphs (auto) Absolute Monos (auto) Absolute Eos (auto) Absolute Basos (auto) Neutrophils % Lymphocytes % Monocytes % Eosinophils % Basophils % PT INR Sodium Potassium Chloride Carbon Dioxide Anion Gap BUN Creatinine BUN/Creatinine Ratio POC Glucose 141 H D 129 H Random Glucose Serum Osmolality Calcium Vancomycin Trough 10.3 H Digoxin 06/18/19 06/19/19 06/19/19 21:00 05:10 05:10 WBC 4.4 L RBC 4.11 L Hgb 11.5 L Hct 36.2 MCV 88.1 MCH 28.0 MCHC 31.7 L RDW 16.8 H Plt Count 164 MPV 8.1 Absolute Neuts (auto) 3.20 Absolute Lymphs (auto) 0.50 L Absolute Monos (auto) 0.60 Absolute Eos (auto) 0.10 Absolute Basos (auto) 0.00 Neutrophils % 71.8 Lymphocytes % 12.0 L Monocytes % 13.3 H Eosinophils % 2.0 Basophils % 0.9 PT 31.4 H* INR 3.18 H Sodium Potassium Chloride Carbon Dioxide Anion Gap BUN Creatinine BUN/Creatinine Ratio POC Glucose 151 H Random Glucose Serum Osmolality Calcium Vancomycin Trough Digoxin 06/19/19 06/19/19 06/19/19 05:10 05:10 06:45 WBC RBC Hgb Hct MCV MCH MCHC RDW Plt Count MPV Absolute Neuts (auto) Absolute Lymphs (auto) Absolute Monos (auto) Absolute Eos (auto) Absolute Basos (auto) Neutrophils % Lymphocytes % Monocytes % Eosinophils % Basophils % PT INR Sodium 139 Potassium 3.1 L Chloride 86 L Carbon Dioxide 37 H Anion Gap 19.1 H BUN 35 H Creatinine 1.35 H BUN/Creatinine Ratio 25.9 H POC Glucose 86 Random Glucose 81 Serum Osmolality 284.5 Calcium 8.7 Vancomycin Trough Digoxin 3.8 H Assessment: 1. Bilateral pneumonia on cefepime and vancomycin. 2. Atrial fibrillation, rate controlled. 3. Acute exacerbation of CHF. 4. Renal insufficiency. 5. UTI, cultures showing gram negative bacilli. 6. Hyperkalemia, resolved. 7. Diabetes Mellitus type 2. 8. Advanced dementia. Plan: INR elevated, so will hold off on warfarin today. Also, digoxin level still elevated, so holding off on this as well. Continuing IV antibiotics as scheduled, and awaiting urine culture sensitivities. Recheck labs in AM, as well as CXR.
[2019-06-19] MEDS ORDERED: SODIUM CHLORIDE 0.9% 250ML 250 ML ONE (15:03)
[2019-06-19] MEDS ORDERED: VANCOMYCIN HCL INJ 1,000 MG VIAL IVPB ONE (15:04)
[2019-06-19] MEDS: VANCOMYCIN HCL INJ 750 MG in SODIUM CHLORIDE 0.9% 250ML 250 ML IVPB SCH (15:16)
[2019-06-19] MEDS: ATORVASTATIN 10 MG TAB PO SCH (20:05)
[2019-06-19] MEDS: traZODone HCL 50 MG TAB PO SCH (20:05)
[2019-06-19] MEDS: INSULIN DETEMIR 100 UNITS/ML PEN SUBCU SCH (21:01)
[2019-06-20] MEDS: PANTOPRAZOLE SODIUM TAB 40 MG PO SCH (06:26)
--- NOTE | 2019-06-20 07:23 | RAD ---
EXAM: XR Chest, 1 View CLINICAL HISTORY: The patient is 78 years old and is Female; pneumonia TECHNIQUE: Frontal view of the chest. COMPARISON: Chest radiograph from 06/16/2019 FINDINGS: LUNGS: Small calcified granulomas visualized projecting over the right upper lung. There is minimal right basilar opacity suggesting atelectasis. This is improved compared to the prior study. The lungs are otherwise clear. PLEURAL SPACE: Unremarkable. No pneumothorax. HEART: No significant enlargement of the cardiac silhouette. MEDIASTINUM: Unremarkable. BONES/JOINTS: No acute osseous findings. IMPRESSION: Minimal right basilar atelectasis which is improved. Electronically signed by: Radha Ríos MD 06/20/2019 7:22 AM CDT
[2019-06-20] MEDS: INSULIN LISPRO 100 UNITS/ML PEN SUBCU SCH ×2 (07:27→12:15)
[2019-06-20] MEDS ORDERED: SODIUM CHL 0.9% 50ML MIN-BAG+ 50 ML IVPB ONE (07:48)
[2019-06-20] MEDS ORDERED: CEFEPIME 2 GM VIAL ONE (07:49)
[2019-06-20] MEDS: POTASSIUM CHLORIDE 20 MEQ TAB PO SCH (08:07)
[2019-06-20] MEDS: ASPIRIN (CHEWABLE) 81 MG TAB PO SCH (08:25)
[2019-06-20] MEDS: CETIRIZINE HCL 10 MG TAB PO SCH (08:25)
[2019-06-20] MEDS: DOCUSATE SODIUM 100 MG CAP PO SCH (08:25)
[2019-06-20] MEDS: METOPROLOL TARTRATE 25 MG TAB PO SCH (08:25)
[2019-06-20] MEDS: FUROSEMIDE INJ 40 MG/4 ML VIAL IV SCH (08:26)
[2019-06-20] MEDS: CEFEPIME 2 GM in SODIUM CHL 0.9% 50ML MIN-BAG+ 50 ML IVPB SCH (08:28)
[2019-06-20] MEDS: SODIUM CHLORIDE 0.9% (FLUSH) 10 ML SYG IV SCH (08:28)
[2019-06-20] MEDS: BUMETANIDE 0.25 MG/ML VIAL IV SCH (08:28)
[2019-06-20] MEDS ORDERED: CEFUROXIME AXETIL TAB 250 MG TAB PO SCH (10:00)
[2019-06-20 12:34] VITALS: BP 110/76; TEMP 97.2
[2019-06-20 16:55] VITALS: O2SAT 99
--- NOTE | 2019-06-20 20:34 | DS ---
SUPERVISING PHYSICIAN: Zeb Cao M.D. ADMISSION DIAGNOSIS: 1. Congestive heart failure exacerbation. 2. Urinary tract infection. 3 Anasarca secondary to #1. 4. Renal insufficiency. 5. Hyperkalemia secondary to renal insufficiency. 6. Diabetes mellitus type 2. 7. Dementia. DISCHARGE DIAGNOSIS: 1. Exacerbation of congestive heart failure. 2. Klebsiella urinary tract infection. 3. Anasarca secondary to #1. 4. Renal insufficiency, improved. 5. Hyperkalemia, resolved. 6. Diabetes mellitus type 2. 7. Dementia. HOSPITAL COURSE: This is a 78 year-old female who came to the Emergency Room with congestive heart failure. She has had several admissions for CHF with anasarca in the past. She is also having issues with atrial fibrillation. She came back with the same complaints and was admitted to the hospital. She was placed on pretty aggressive diuretic therapy with alterations of Lasix and Bumex along with Zaroxolyn. The patient had some issues with her heart rate and she was given a loading dose of digoxin. This helped to control her rate, however she was not placed on daily doses due to elevated digoxin level. Her diuretics were reduced and her anasarca actually resolved. Congestive heart failure was improved as well. Throughout the admission the urinary tract infection culture resulted with Klebsiella. This was sensitive to Cefuroxime so she was taken off her antibiotics and placed on Cefuroxime. She was discharged in stable condition today with instructions to hold her Warfarin until Tuesday and recheck her INR on Tuesday. It got supratherapeutic for a short time but is now within normal range. Additionally she will be taking Cefuroxime at the half-way. I did not order digoxin on her due to the fact that her levels were elevated after the loading dose. It took a while to drop. She may require lower p.o. doses in the future as it did a pretty good job of controlling her rate. Activity is as tolerated. Diet is her previous diet. [id number]
== END 2019-06-20 15:00 | DRG 291 ==
LOC: ER 14:47 → OBSVTOIN 19:56 → MS 19:56
PROVIDERS: ADMIT Nurse Practitioner Acute Care; ATTEND Nurse Practitioner
DX: I13.0 Hypertensive heart and chronic kidney disease with heart failure and stage 1 through stage 4 chronic kidney disease, or unspecified chronic kidney disease (principal); I50.33 Acute on chronic diastolic (congestive) heart failure; N39.0 Urinary tract infection, site not specified; I48.20 Chronic atrial fibrillation, unspecified; J18.9 Pneumonia, unspecified organism; E87.5 Hyperkalemia; E11.22 Type 2 diabetes mellitus with diabetic chronic kidney disease; N18.9 Chronic kidney disease, unspecified; F03.90 Unspecified dementia, unspecified severity, without behavioral disturbance, psychotic disturbance, mood disturbance, and anxiety; B96.1 Klebsiella pneumoniae [K. pneumoniae] as the cause of diseases classified elsewhere; Z79.01 Long term (current) use of anticoagulants; Z88.0 Allergy status to penicillin; Z91.048 Other nonmedicinal substance allergy status